=== PATIENT | female | born 1950 | race Caucasian/White ===

== ENCOUNTER 2016-11-25 12:45 | Emergency (ER) | payer MEDICARE, OTHER ==
[2016-11-25 13:28] VITALS: RESP 18; TEMP 97.9
[2016-11-25] MEDS ORDERED: diphenhydrAMINE 25 MG CAP PO STA (13:59)
[2016-11-25] MEDS ORDERED: predniSONE 50 MG TAB PO STA (13:59)
--- NOTE | 2016-11-25 14:01 | ED ---
General Adult HPI - General Chief complaint: Allergic Reaction Stated complaint: Allergic Reaction Time Seen by Provider: 11/25/16 13:31 Source: patient, RN notes reviewed, old records reviewed Mode of arrival: ambulatory Limitations: no limitations - History of Present Illness Initial comments: Patient is 66-year-old female who presents emergency room today with a chief complaint of a rash. She does admit that she follow-up the family doctor 3 days ago and was prescribed a antibiotics of quotes ampicillin" for a sinus infection. She states that she took this for 1 day woke up the next day with a rash generalized to her upper chest and arms. States she went back to the family doctor was given a shot of steroids. Patient states that symptoms are no better today. States not been using any Benadryl. Is not on steroids. He was given a prescription for doxycycline. She states she is worried because earlier this year she was admitted to the hospital for an infection. She denies any fevers. She denies any other complaints or associated symptoms. Patient denies any recent fever, chills, shortness of breath, chest pain, back pain, abdominal pain, nausea or vomiting, numbness or tingling, dysuria or hematuria, constipation or diarrhea, headaches or visual changes, or any other complaints. - Related Data Home Medications Medication Instructions Recorded Confirmed Allopurinol [Zyloprim] 300 mg PO DAILY 01/09/16 01/09/16 Dextroamphetamine/Amphetamine 15 mg PO BID 01/09/16 01/09/16 [Adderall] lamoTRIgine [LaMICtal] 100 mg PO DAILY 01/09/16 01/09/16 Previous Rx's Medication Instructions Recorded Acetaminophen Tab [Tylenol] 500 mg PO Q4HR PRN #0 tab 01/27/16 Diphenox-Atrop 2.5-0.025 mg 1 each PO Q6HR PRN #0 tab 01/27/16 [Lomotil] Docosanol 10% Cream [Abreva] 1 applic TOPICAL 5XD applic 01/27/16 Enoxaparin [Lovenox] 40 mg SQ DAILY syringe 01/27/16 Ertapenem [INVanz] 1 gm IVPB HS vial 01/27/16 Ipratropium-Albuterol Nebulize 3 ml INHALATION RT-QID ampul.neb 01/27/16 [Duoneb 0.5 mg-3 mg/3 ml Soln] LORazepam [Ativan] 1 mg PO Q8HR PRN #0 tab 01/27/16 Lactobacillus Acidoph & Bulgar 1 each PO TID packet 01/27/16 [Lactinex] Pantoprazole [Protonix] 40 mg PO AC-BRKFST tablet. 01/27/16 Scopolamine 1.5MG/72Hr Patch 1 patch TRANSDERM Q72H patch 01/27/16 [TransDerm Scop] Triamcinolone 0.1% Cream [Kenalog] 1 applic TOPICAL BID applic 01/27/16 diphenhydrAMINE [Benadryl] 1 - 2 tab PO Q6HR PRN #30 capsule 11/25/16 predniSONE 20 mg PO BID #10 tab 11/25/16 Allergies Allergy/AdvReac Type Severity Reaction Status Date / Time allopurinol Allergy Anaphylaxis Verified 11/25/16 13:29 ampicillin Allergy Rash/Hives Verified 11/25/16 13:29 avocado Allergy Nausea & Verified 11/25/16 13:29 Vomiting doxycycline Allergy Rash/Hives Verified 11/25/16 13:29 Sulfa (Sulfonamide Allergy Unknown Verified 11/25/16 13:29 Antibiotics) Review of Systems ROS Statement: Those systems with pertinent positive or pertinent negative responses have been documented in the HPI. ROS Other: All systems not noted in ROS Statement are negative. Past Medical History Past Medical History: Cancer, GERD/Reflux Additional Past Medical History / Comment(s): non hodgkins lymphoma, hiatal hernia,dx 2011 with non hodgkins lymphoma,tx,went into remission then had reoccurance few months ago-completed 30 tx(first round). recent thrush-since resolved but has non puritic diffuse rash over body. other past hx includes: mon in high school, hepatitis b,add,depression anxiety. History of Any Multi-Drug Resistant Organisms: None Reported Past Surgical History: Adenoidectomy, Tonsillectomy Additional Past Surgical History / Comment(s): rt cervical bx, multiple lymph nodes removed, colonoscopy, rt breast biopsy -neg Past Anesthesia/Blood Transfusion Reactions: No Reported Reaction Past Psychological History: ADD/ADHD, Anxiety, Depression Additional Psychological History / Comment(s): Single. Tobacco smoker till a few months ago. No significant alcohol use. No recreational drug use. No travel history. No experience. No animal exposures. Relates her parents both of cardiovascular disease. Smoking Status: Former smoker Past Alcohol Use History: None Reported Additional Past Alcohol Use History / Comment(s): started smoking at age 20 smoked 1 ppd, quit 1 month ago. Past Drug Use History: None Reported - Past Family History Mother Family Medical History: Coronary Artery Disease (CAD), Myocardial Infarction ([place] ) Additional Family Medical History / Comment(s): valve replacment(pig valve), pacemaker Father Family Medical History: Diabetes Mellitus, Myocardial Infarction ([place]) Additional Family Medical History / Comment(s): pacemaker General Exam - General Exam Comments Initial Comments: General: The patient is awake and alert, in no distress, and does not appear acutely ill. Eye: Pupils are equal, round and reactive to light, extra-ocular movements are intact. No nystagmus. There is normal conjunctiva bilaterally. No signs of icterus. Ears, nose, mouth and throat: There are moist mucous membranes and no oral lesions. Neck: The neck is supple, there is no tenderness or JVD. Cardiovascular: There is a regular rate and rhythm. No murmur, rub or gallop is appreciated. Respiratory: Lungs are clear to auscultation, respirations are non-labored, breath sounds are equal. No wheezes, stridor, rales, or rhonchi. Musculoskeletal: Normal ROM, no tenderness. Strength 5/5. Sensation intact. Pulses equal bilaterally 2+. Neurological: A&O x 3. CN II-XII intact, There are no obvious motor or sensory deficits. Coordination appears grossly intact. Speech is normal. Skin: Mild red erythematous rash to the upper extremities and anterior trunk. Psychiatric: Cooperative, appropriate mood & affect, normal judgment. Limitations: no limitations Course Vital Signs 11/25/16 13:19 Temperature 97.9 F Pulse Rate 70 Respiratory 18 Rate Blood Pressure 118/66 O2 Sat by Pulse 100 Oximetry Medical Decision Making - Medical Decision Making Patient's previous records were reviewed and does show that she was admitted and transferred to [facility] for a infectious colitis. She has no fever. No abdominal pain or diarrhea. Nausea and vomiting. Patient does have rash that she is being treated for due to ALLERGIC reaction. Has not been taking Benadryl or steroids. He was only given one dose. Patient will be given dose of steroids here in the emergency room along with Benadryl. Advised continue Benadryl one to 2 tabs every 6 hours. Will be given a prescription for steroids go home with advice to continue Benadryl if symptoms are not improving to use dose of steroids and follow-up the family doctor tomorrow. Advised to return to emergency room if any symptoms increase or worsen or for any other concerns. Disposition Clinical Impression: Allergic reaction Disposition: HOME SELF-CARE Condition: Good Instructions: General Allergic Reaction (ED) Additional Instructions: Please use Benadryl one to 2 tabs every 6 hours. Please use steroids as discussed and follow-up family doctor tomorrow. Please return to emergency room if any symptoms increase or worsen or for any other concerns. Prescriptions: diphenhydrAMINE [Benadryl] 1 - 2 tab PO Q6HR PRN #30 capsule PRN Reason: Allergic Reaction predniSONE 20 mg PO BID #10 tab Time of Disposition: 14:00
[2016-11-25 14:10] VITALS: BP 147/68; PULSE 65
== END 2016-11-25 14:28 | disposition home or self-care (01) ==
LOC: EC 12:45
DX: T78.40XA Allergy, unspecified, initial encounter (principal); R21 Rash and other nonspecific skin eruption; Z87.891 Personal history of nicotine dependence; K21.9 Gastro-esophageal reflux disease without esophagitis; C85.90 Non-Hodgkin lymphoma, unspecified, unspecified site; F90.9 Attention-deficit hyperactivity disorder, unspecified type; F32.9 Major depressive disorder, single episode, unspecified; F41.9 Anxiety disorder, unspecified; Z79.899 Other long term (current) drug therapy; Z88.0 Allergy status to penicillin; Z88.1 Allergy status to other antibiotic agents; Z88.2 Allergy status to sulfonamides; Z88.8 Allergy status to other drugs, medicaments and biological substances
CPT/HCPCS: 99283; J7512

== ENCOUNTER → 2017-01-15 | Outpatient (CLI) | payer MEDICARE, OTHER ==
--- NOTE | 2017-01-15 19:36 | CT ---
EXAMINATION TYPE: CT sinus wo con DATE OF EXAM: 01/15/2017 7:09 PM COMPARISON: NONE HISTORY: Sinus pain and pressure x 3 months. Pain to top of head. CT DLP: 660.00 mGycm Automated exposure control for dose reduction was used. FINDINGS: There is fairly normal development and aeration of the paranasal sinuses. There is atrophy of the rayray al turbinates. There is bilateral patency of the ostiomeatal complex. There is a 1 cm bony density in the right frontal sinus consistent with osteoma. Orbital margins are intact. Maxilla is intact. I se e no focal bone destruction. There is an 8 mm area of mucosal thickening on the left side of the sphe noid sinus. There is normal aeration of the mastoid air cells. IMPRESSION: NASAL TURBINATE ATROPHY OTHERWISE NEGATIVE CT SCAN OF THE PARANASAL SINUSES. MINIMAL SPHENOID MUCOSAL THICKENING. RIGHT FRONTAL SINUS OSTEOMA.
== END | disposition home or self-care (01) ==
LOC: RADCTMAIN 18:16
PROVIDERS: ATTEND Internal Medicine
DX: J34.89 Other specified disorders of nose and nasal sinuses (principal); D16.4 Benign neoplasm of bones of skull and face
CPT/HCPCS: 70486

== ENCOUNTER → 2017-02-20 | Outpatient (CLI) | payer MEDICARE, OTHER ==
[2017-02-20 11:05] LABS: ALT 41 U/L (9-52); AST 23 U/L (14-36); Alkaline Phosphatase 60 U/L (38-126); Anion Gap 8 mmol/L; Blood Urea Nitrogen 18 mg/dL (7-17); Calcium 9.7 mg/dL (8.4-10.2); Carbon Dioxide 29 mmol/L (22-30); Chloride 105 mmol/L (98-107); Cholesterol 281 mg/dL (<200); Glucose 81 mg/dL (74-99); HDL Cholesterol 91 mg/dL (40-60); LDH 385 U/L (313-618); Non-African American GFR(MDRD) >60 (>60 ml/min/1.73 sqM); Potassium 4.1 mmol/L (3.5-5.1); Sodium 142 mmol/L (137-145); Total Bilirubin 0.6 mg/dL (0.2-1.3); Total Protein 6.3 g/dL (6.3-8.2); Triglycerides 125 mg/dL (<150)
[2017-02-20 11:07] LABS: Basophils % (A) 0 %; CH 31.5; CHCM 32.9; Eosinophils # (A) 0.2 k/uL (0-0.7); Eosinophils % (A) 4 %; HCT 41.2 % (34.0-46.0); HDW 2.48; HGB 13.4 gm/dL (11.4-16.0); Luc # (Auto) 0.12; Luc % (Auto) 2; Lymphocytes # (A) 1.6 k/uL (1.0-4.8); Lymphocytes % (A) 28 %; MCH 31.4 pg (25.0-35.0); MCHC 32.6 g/dL (31.0-37.0); MCV 96.3 fL (80.0-100.0); Mean Platelet Volume 6.9; Monocytes # (A) 0.3 k/uL (0-1.0); Monocytes % (A) 5 %; Neutrophils # (A) 3.5 k/uL (1.3-7.7); Neutrophils % (A) 61 %; RBC 4.28 m/uL (3.80-5.40); RDW 13.1 % (11.5-15.5); WBC 5.8 k/uL (3.8-10.6); WBC (Perox) 6.21
[2017-02-20 14:24] LABS: Erythrocyte Sedimentation Rate 8 mm/hr (0-20)
== END ==
LOC: LABWHC1 09:59
PROVIDERS: ATTEND Internal Medicine
DX: E55.9 Vitamin D deficiency, unspecified (principal); Z13.6 Encounter for screening for cardiovascular disorders; C82.80 Other types of follicular lymphoma, unspecified site
CPT/HCPCS: 36415; 80053; 80061; 82306; 83615; 85025; 85652

== ENCOUNTER 2017-03-30 22:52 | Inpatient (IN) | payer MEDICARE, OTHER ==
[2017-03-31] MEDS ORDERED: MORPHINE SULFATE 4 MG/ML SYRINGE IV STA (00:18)
[2017-03-31] MEDS ORDERED: SODIUM CHLORIDE 0.9% 1,000 ML IV STA (00:18)
[2017-03-31] MEDS ORDERED: RX INFO: IV CONTRAST WAS GIVEN 1 EACH MISC MISCELLANE PRN (00:19)
--- NOTE | 2017-03-31 00:25 | ED ---
General Adult HPI - General Chief complaint: Shortness of Breath Stated complaint: Shoulder pain Source: patient, RN notes reviewed Mode of arrival: ambulatory Limitations: no limitations - History of Present Illness Initial comments: Patient is a pleasant 66-year-old female presenting to the emergency department complaining of right shoulder discomfort. Onset of symptoms was yesterday. Symptoms have significantly progressed since that time. Symptoms have even worsened over the past few hours. Patient states the discomfort is taking her breath away. No pain in the chest. Discomfort is by the right scapula and somewhat in the right trapezius and right shoulder region. Patient does have known liver disease and known gallstone. No history of similar problems previously. Symptoms are not positional. - Related Data Home Medications Medication Instructions Recorded Confirmed Amoxic-Pot Clav 875-125Mg 1 tab PO Q12H 11/25/16 11/25/16 [Augmentin 875-125] Doxycycline Hyclate 100 mg PO BID 11/25/16 11/25/16 Entecavir 0.5 mg PO DAILY 11/25/16 11/25/16 LORazepam [Ativan] 0.5 mg PO TID PRN 11/25/16 11/25/16 Allergies Allergy/AdvReac Type Severity Reaction Status Date / Time allopurinol Allergy Anaphylaxis Verified 03/31/17 00:34 ampicillin Allergy Rash/Hives Verified 03/31/17 00:34 avocado Allergy Nausea & Verified 03/31/17 00:34 Vomiting doxycycline Allergy Rash/Hives Verified 03/31/17 00:34 Sulfa (Sulfonamide Allergy Unknown Verified 03/31/17 00:34 Antibiotics) Review of Systems ROS Statement: Those systems with pertinent positive or pertinent negative responses have been documented in the HPI. ROS Other: All systems not noted in ROS Statement are negative. Constitutional: Denies: fever Eyes: Denies: eye pain ENT: Denies: ear pain Respiratory: Denies: cough Cardiovascular: Denies: chest pain Endocrine: Denies: fatigue Gastrointestinal: Reports: abdominal pain (Mild) Genitourinary: Denies: dysuria Musculoskeletal: Reports: back pain Skin: Denies: rash Neurological: Denies: weakness Past Medical History Past Medical History: Cancer, GERD/Reflux Additional Past Medical History / Comment(s): non hodgkins lymphoma, hiatal hernia,dx 2011 with non hodgkins lymphoma,tx,went into remission then had reoccurance few months ago-completed 30 tx(first round). recent thrush-since resolved but has non puritic diffuse rash over body. other past hx includes: mon in high school, hepatitis b,add,depression anxiety. History of Any Multi-Drug Resistant Organisms: None Reported Past Surgical History: Adenoidectomy, Tonsillectomy Additional Past Surgical History / Comment(s): rt cervical bx, multiple lymph nodes removed, colonoscopy, rt breast biopsy -neg Past Anesthesia/Blood Transfusion Reactions: No Reported Reaction Past Psychological History: ADD/ADHD, Anxiety, Depression Additional Psychological History / Comment(s): Single. Tobacco smoker till a few months ago. No significant alcohol use. No recreational drug use. No travel history. No experience. No animal exposures. Relates her parents both of cardiovascular disease. Smoking Status: Current every day smoker Past Alcohol Use History: None Reported Additional Past Alcohol Use History / Comment(s): started smoking at age 20 smoked 1 ppd, quit 1 month ago. Past Drug Use History: None Reported - Past Family History Mother Family Medical History: Coronary Artery Disease (CAD), Myocardial Infarction ([place] ) Additional Family Medical History / Comment(s): valve replacment(pig valve), pacemaker Father Family Medical History: Diabetes Mellitus, Myocardial Infarction ([place]) Additional Family Medical History / Comment(s): pacemaker General Exam Limitations: no limitations General appearance: alert, in no apparent distress Head exam: Present: atraumatic Eye exam: Present: normal appearance, PERRL ENT exam: Present: normal oropharynx Neck exam: Present: normal inspection Respiratory exam: Present: normal lung sounds bilaterally Cardiovascular Exam: Present: regular rate, normal rhythm Expanded Peripheral pulses: 2+: Radial (R), Radial (L), Dorsalis Pedis (R), Dorsalis Pedis (L) GI/Abdominal exam: Present: soft, tenderness (Mild right upper quadrant tenderness). Absent: distended Extremities exam: Present: normal inspection. Absent: pedal edema, calf tenderness Back exam: Present: normal inspection, full ROM, other (Patient states area discomfort is as described in the HPI however no significant tenderness on exam. ). Absent: tenderness Neurological exam: Present: alert. Absent: motor sensory deficit Psychiatric exam: Present: normal affect, normal mood Skin exam: Absent: rash Course Vital Signs 03/30/17 03/31/17 03/31/17 23:58 00:32 02:01 Temperature 98.1 F Pulse Rate 95 105 H 91 Respiratory 20 20 18 Rate Blood Pressure 157/75 125/73 112/58 O2 Sat by Pulse 99 98 99 Oximetry 03/31/17 03/31/17 03:01 03:30 Temperature Pulse Rate 99 91 Respiratory 18 18 Rate Blood Pressure 122/59 110/54 O2 Sat by Pulse 97 99 Oximetry EKG Findings - EKG Comments: EKG Findings:: Sinus rhythm at 91. NC 110. QRS 80. QT 314. QTC 36. Normal axis. Normal QRS. Normal ST-T. Medical Decision Making - Medical Decision Making Patient reevaluated and resting comfortably in bed. Patient updated on results and plan. Case was discussed with practitioner Luma who will admit for Dr. fitzgerald. Covering for Dr. Martin. Patient states she has seen Dr. Allen in the past and he will be consult - Lab Data Result diagrams: 03/31/17 00:35 03/31/17 00:35 Lab Results 03/31/17 03/31/17 03/31/17 Range/Units 00:35 00:35 00:35 WBC 6.9 (3.8-10.6) k/uL RBC 4.28 (3.80-5.40) m/uL Hgb 13.7 (11.4-16.0) gm/dL Hct 40.9 (34.0-46.0) % MCV 95.6 (80.0-100.0) fL MCH 32.0 (25.0-35.0) pg MCHC 33.5 (31.0-37.0) g/dL RDW 13.3 (11.5-15.5) % Plt Count 153 (150-450) k/uL Neutrophils % 89 % Lymphocytes % 4 % Monocytes % 4 % Eosinophils % 3 % Basophils % 0 % Neutrophils # 6.2 (1.3-7.7) k/uL Lymphocytes # 0.2 L (1.0-4.8) k/uL Monocytes # 0.3 (0-1.0) k/uL Eosinophils # 0.2 (0-0.7) k/uL Basophils # 0.0 (0-0.2) k/uL PT (9.0-12.0) sec INR (<1.1) APTT (22.0-30.0) sec Sodium 142 (137-145) mmol/L Potassium 4.2 (3.5-5.1) mmol/L Chloride 106 (98-107) mmol/L Carbon Dioxide 26 (22-30) mmol/L Anion Gap 10 mmol/L BUN 27 H (7-17) mg/dL Creatinine 1.10 H (0.52-1.04) mg/dL Est GFR (MDRD) Af Amer >60 (>60 ml/min/1.73 sqM) Est GFR (MDRD) Non-Af 50 (>60 ml/min/1.73 sqM) Glucose 105 H (74-99) mg/dL Calcium 9.4 (8.4-10.2) mg/dL Magnesium 1.9 (1.6-2.3) mg/dL Total Bilirubin 0.5 (0.2-1.3) mg/dL AST 51 H (14-36) U/L ALT 42 (9-52) U/L Alkaline Phosphatase 72 (38-126) U/L Total Creatine Kinase 39 (30-135) U/L CK-MB (CK-2) 0.8 (0.0-2.4) ng/mL CK-MB (CK-2) Rel Index 2.1 Troponin I <0.012 (0.000-0.034) ng/mL Total Protein 6.0 L (6.3-8.2) g/dL Albumin 3.9 (3.5-5.0) g/dL Amylase 86 (30-110) U/L Lipase 419 H (23-300) U/L 03/31/17 Range/Units 00:35 WBC (3.8-10.6) k/uL RBC (3.80-5.40) m/uL Hgb (11.4-16.0) gm/dL Hct (34.0-46.0) % MCV (80.0-100.0) fL MCH (25.0-35.0) pg MCHC (31.0-37.0) g/dL RDW (11.5-15.5) % Plt Count (150-450) k/uL Neutrophils % % Lymphocytes % % Monocytes % % Eosinophils % % Basophils % % Neutrophils # (1.3-7.7) k/uL Lymphocytes # (1.0-4.8) k/uL Monocytes # (0-1.0) k/uL Eosinophils # (0-0.7) k/uL Basophils # (0-0.2) k/uL PT 9.9 (9.0-12.0) sec INR 1.0 (<1.1) APTT 22.2 (22.0-30.0) sec Sodium (137-145) mmol/L Potassium (3.5-5.1) mmol/L Chloride (98-107) mmol/L Carbon Dioxide (22-30) mmol/L Anion Gap mmol/L BUN (7-17) mg/dL Creatinine (0.52-1.04) mg/dL Est GFR (MDRD) Af Amer (>60 ml/min/1.73 sqM) Est GFR (MDRD) Non-Af (>60 ml/min/1.73 sqM) Glucose (74-99) mg/dL Calcium (8.4-10.2) mg/dL Magnesium (1.6-2.3) mg/dL Total Bilirubin (0.2-1.3) mg/dL AST (14-36) U/L ALT (9-52) U/L Alkaline Phosphatase (38-126) U/L Total Creatine Kinase (30-135) U/L CK-MB (CK-2) (0.0-2.4) ng/mL CK-MB (CK-2) Rel Index Troponin I (0.000-0.034) ng/mL Total Protein (6.3-8.2) g/dL Albumin (3.5-5.0) g/dL Amylase (30-110) U/L Lipase (23-300) U/L - Radiology Data Radiology results: report reviewed (Computed tomography scan of the chest shows no acute process. Ultrasound shows cholelithiasis with nonspecific wall thickening and gallbladder distention. Common bile duct dilation.) Disposition Clinical Impression: Cholelithiasis Disposition: ADMITTED IP TO THIS HOSP
[2017-03-31 00:54] LABS: Basophils % (A) 0 %; CH 32.8; CHCM 34.4; Eosinophils # (A) 0.2 k/uL (0-0.7); Eosinophils % (A) 3 %; HCT 40.9 % (34.0-46.0); HDW 2.59; HGB 13.7 gm/dL (11.4-16.0); Luc # (Auto) 0.03; Luc % (Auto) 0; Lymphocytes # (A) 0.2 k/uL (1.0-4.8); Lymphocytes % (A) 4 %; MCHC 33.5 g/dL (31.0-37.0); MCV 95.6 fL (80.0-100.0); Monocytes # (A) 0.3 k/uL (0-1.0); Monocytes % (A) 4 %; Neutrophils # (A) 6.2 k/uL (1.3-7.7); Neutrophils % (A) 89 %; Partial Thromboplastin Time 22.2 sec (22.0-30.0); Prothrombin Time 9.9 sec (9.0-12.0); RBC 4.28 m/uL (3.80-5.40); RDW 13.3 % (11.5-15.5); WBC 6.9 k/uL (3.8-10.6); WBC (Perox) 6.42
[2017-03-31 00:55] LABS: ALT 42 U/L (9-52); AST 51 U/L (14-36); Alkaline Phosphatase 72 U/L (38-126); Amylase 86 U/L (30-110); Anion Gap 10 mmol/L; Blood Urea Nitrogen 27 mg/dL (7-17); Calcium 9.4 mg/dL (8.4-10.2); Carbon Dioxide 26 mmol/L (22-30); Chloride 106 mmol/L (98-107); Glucose 105 mg/dL (74-99); Magnesium 1.9 mg/dL (1.6-2.3); Non-African American GFR(MDRD) 50 (>60 ml/min/1.73 sqM); Potassium 4.2 mmol/L (3.5-5.1); Sodium 142 mmol/L (137-145); Total Bilirubin 0.5 mg/dL (0.2-1.3)
[2017-03-31 01:04] LABS: Creatine Kinase 39 U/L (30-135)
[2017-03-31 01:17] LABS: Creatine Kinase MB 0.8 ng/mL (0.0-2.4); Troponin I <0.012 ng/mL (0.000-0.034)
--- NOTE | 2017-03-31 02:14 | US ---
EXAM: US GALLBLADDER INDICATION: 66-year-old female with right upper quadrant abdominal pain. TECHNIQUE: Real-time imaging of the right upper quadrant is performed in transverse and longitudinal projections. COMPARISON: CT abdomen and pelvis 01/21/2016. FINDINGS: The gallbladder is distended and contains non-shadowing mobile echogenic foci near its dependent portion. There is mild gallbladder wall thickening measuring up to 0.3 cm, which is nonspecific. No pericholecystic fluid. Motor Operator reports a negative Pena's sign. Common bile duct is dilated measuring 0.8 cm. The liver is normal in size and echotexture. No focal mass lesions are seen. The visualized portions of the pancreas are unremarkable. IMPRESSION: Cholelithiasis with nonspecific gallbladder wall thickening, gallbladder distention, and common bile duct dilation. Consider further evaluation with HIDA scan and correlation for cholestasis.
[2017-03-31] MEDS ORDERED: MORPHINE SULFATE 4 MG/ML SYRINGE IVP STA (03:21)
--- NOTE | 2017-03-31 03:38 | CT ---
EXAM: CTA CHEST DOSE: CTDI is 35.2 mGy and DLP is 147.70 mGy-cm DOSE REDUCTION: This CT exam was performed using one or more of the following dose reduction techniques: automated exposure control, adjustment of the mA and/or kV according to patient size, and/or use of iterative reconstruction technique. INDICATION: 66-year-old female with chest and back pain; history of lymphoma. TECHNIQUE: Multiple, contiguous axial cuts of the chest are obtained following the administration of IV contrast. High resolution axial image as well as, sagittal and coronal reformatted images are available. COMPARISON: CT chest 11/24/2015. FINDINGS: Heart, vasculature, and mediastinum: No large or central pulmonary embolus is identified with markedly limited evaluation secondary to suboptimal contrast bolus within the pulmonary arteries. The aorta is within normal limits, no aneurysm or dissection. Mild atherosclerosis of the thoracic aorta and branches. The cardiomediastinal structures are otherwise unremarkable. No adenopathy. Thyroid is normal as visualized. Lungs, pleura, and airways: No pleural effusion, pneumothorax, or focal consolidation. Stable left upper lobe nodule with adjacent scarring or fibrosis measuring 0.8 cm. Subpleural fibrosis and emphysema has mildly progressed since comparison examination. Airways are clear. No significant bronchiectasis. Musculoskeletal: The osseous structures are intact. Degenerative changes spine. No aggressive osseous lesion or evidence of compression fracture. Upper abdomen: Solid organs are unremarkable as visualized. Upper abdominal adenopathy has markedly improved/resolved since comparison. IMPRESSION: 1. No evidence of acute chest process. 2. Left upper lobe nodule with adjacent scarring and fibrosis is unchanged. Continued follow-up is recommended to ensure stability. 3. 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 4. Upper abdominal adenopathy is markedly improved/resolved since comparison.
[2017-03-31] MEDS ORDERED: NALOXONE 0.4 MG/ML 1 ML VIAL IV PRN (03:48)
[2017-03-31] MEDS ORDERED: ONDANSETRON 4 MG/2 ML VIAL IVP PRN (04:58)
[2017-03-31] MEDS ORDERED: LORazepam 2 MG/ML SYRINGE IM PRN (04:58)
[2017-03-31 05:14] VITALS: BMI 21.9
[2017-03-31] MEDS: SODIUM CHLORIDE 0.9% 1,000 ML IV SCH ×3 (05:16→17:55)
[2017-03-31] MEDS: LORazepam 2 MG/ML SYRINGE IV PRN ×2 (05:50→14:47)
[2017-03-31] MEDS: PANTOPRAZOLE 40 MG/10 ML VIAL IV SCH (08:31)
[2017-03-31] MEDS: MORPHINE SULFATE 4 MG/ML SYRINGE IV PRN ×3 (11:14→20:00)
--- NOTE | 2017-03-31 11:19 | P.GSCN ---
History of Present Illness Consult date: 03/31/17 Reason for Consult: Cholelithiasis Requesting physician: Figueroa Quiros History of present illness: Thank you very much for asking us to see Ms. Cho. She is a 66-year-old white female was admitted through the emergency room last night with severe pain mostly in the right shoulder blade neck area progressively worsened over the last 2 days. Some nausea and an episode of vomiting. Some mild epigastric right upper quadrant discomfort as well. Pain also between the shoulder blades. She's had similar pains off and on in the past but not as severe. She had the an ultrasound revealed evidence of gallstones. Gallbladder wall was not particularly thickened around the gallbladder.Common bile duct was 8mm in diameter slightly dilated. LFT show everywhere normal except for a AST of 51. Node finite the fever or chills. She does have a history of non-Hodgkin's lymphoma and apparently indolent.She did have the chemotherapy last year and subsequently developed a reaction.She is now being observed. Recent workup was unremarkable. Past history as above. Also has a history of hiatal hernia hepatitis B depression and anxiety. Tonsillectomy and adenoidectomy cervical lymph node biopsy colonoscopy and right breast biopsy in the past. Social history. He smoked about the 1 pack of cigarettes per day for sensation 20. Quit about a month ago. Rarely drinks alcohol. She is single. Family history noncontributory. Positive for coronary artery disease diabetes mellitus. Systems review as above. No definite the cough hemoptysis chest pain or significant shortness of breath. No major change in her bowel habits. No urinary symptoms. No LOGGING [employer] problems. Examination. Patient is awake alert in no acute distress at this time. She is then with a BMI of 22. Anicteric. Hydration satisfactory. Color is good. Vitals are normal. Head and neck otherwise normal. Heart lungs are clear. Abdomen is soft. Very minimal epigastric right upper quadrant tenderness. No guarding or rebound. No mass or organomegaly. No hernias. LO[employer] grossly intact. Laboratory studies reviewed. WBC was 6900. Hemoglobin 13.7. LFTs were normal with AST 40 mildly elevated to 51. Bilirubin is 0.5. Ultrasound as above. CTA was unremarkable for PE. Impression cholelithiasis with probably be a biliary colic causing above symptoms. Doubt the common duct obstruction view of unremarkable LFTs. History of the non-Hodgkin's lymphoma stable. She of tobacco abuse. History of anxiety depression. Recommendation agree with current management with IV fluids antibiotics dietary restriction. Recommend laparoscopic cholecystectomy possible open and we will tentatively schedule for tomorrow depending on Dr. Avery's schedule. Past Medical History Past Medical History: Cancer, GERD/Reflux Additional Past Medical History / Comment(s): non hodgkins lymphoma, hiatal hernia,dx 2012 with non hodgkins lymphoma,tx,went into remission then had reoccurance few months ago-completed 30 tx(first round). recent thrush-since resolved but has non puritic diffuse rash over body. other past hx includes: mono in high school, hepatitis B History of Any Multi-Drug Resistant Organisms: None Reported Past Surgical History: Adenoidectomy, Tonsillectomy Additional Past Surgical History / Comment(s): rt cervical bx, multiple lymph nodes removed, colonoscopy, rt breast biopsy -neg Past Anesthesia/Blood Transfusion Reactions: No Reported Reaction Past Psychological History: Anxiety, Depression Additional Psychological History / Comment(s): Single. Tobacco smoker till a few months ago. No significant alcohol use. No recreational drug use. No travel history. No experience. No animal exposures. Relates her parents both of cardiovascular disease. Smoking Status: Current every day smoker Past Alcohol Use History: None Reported Additional Past Alcohol Use History / Comment(s): smokes 5 cigarettes per day Past Drug Use History: None Reported - Past Family History Mother Family Medical History: Coronary Artery Disease (CAD), Myocardial Infarction ([place] ) Additional Family Medical History / Comment(s): valve replacment(pig valve), pacemaker Father Family Medical History: Diabetes Mellitus, Myocardial Infarction ([place]) Additional Family Medical History / Comment(s): pacemaker Medications and Allergies Home Medications Medication Instructions Recorded Confirmed Type Entecavir 0.5 mg PO DAILY 11/25/16 03/31/17 History LORazepam [Ativan] 0.5 mg PO TID PRN 11/25/16 03/31/17 History buPROPion XL [Wellbutrin Xl] 150 mg PO DAILY 03/31/17 03/31/17 History Allergies Allergy/AdvReac Type Severity Reaction Status Date / Time allopurinol Allergy Anaphylaxis Verified 03/31/17 08:23 ampicillin Allergy Rash/Hives Verified 03/31/17 08:23 avocado Allergy Nausea & Verified 03/31/17 08:23 Vomiting doxycycline Allergy Rash/Hives Verified 03/31/17 08:23 metronidazole [From Flagyl] Allergy Rash/Hives Verified 04/01/17 09:09 rituximab [From Rituxan] Allergy Diarrhea Verified 03/31/17 08:23 Sulfa (Sulfonamide Allergy Unknown Verified 03/31/17 08:23 Antibiotics) Surgical - Exam Vital Signs Temp Pulse Resp BP Pulse Ox 98.1 F 95 20 157/75 99 03/30/17 23:58 03/30/17 23:58 03/30/17 23:58 03/30/17 23:58 03/30/17 23:58 Results - Labs 04/02/17 07:30 04/02/17 07:30
[2017-03-31] MEDS ORDERED: LEVOFLOXACIN 500MG-D5W PMX 500 MG in DEXTROSE/WATER 1 100ML.BAG IVPB SCH (12:00)
[2017-03-31] MEDS ORDERED: SODIUM CHLORIDE 0.9% 500 ML IV ONE (17:35)
[2017-03-31] MEDS: ENOXAPARIN 40 MG/0.4 ML SYRINGE SQ SCH (18:13)
[2017-03-31] MEDS: metroNIDAZOLE-NS PMX 500 MG in SALINE 1 100ML.BAG IVPB SCH ×2 (18:13→23:59)
--- NOTE | 2017-03-31 19:33 | XR ---
EXAMINATION TYPE: XR cervical spine w flex/ext DATE OF EXAM: 03/31/2017 7:02 PM COMPARISON: NONE HISTORY: Chronic neck pain TECHNIQUE: 7 views FINDINGS: The vertebra are normal alignment. There is degenerative disc space narrowing at C6-7 with spurring of the endplates. Flexion and extension views show no sign of instability. Posterior element s are intact. Neural foramina are fairly well maintained. Atlantoaxial facet joint is normal. IMPRESSION: Spondylosis at C6-7. No fracture. No evidence of instability.
--- NOTE | 2017-03-31 19:34 | XR ---
EXAMINATION TYPE: XR shoulder complete RT DATE OF EXAM: 03/31/2017 7:02 PM COMPARISON: NONE HISTORY: Shoulder pain TECHNIQUE: 3 views FINDINGS: I see no fracture nor dislocation. Glenohumeral joint is intact. There are no pathologic ca lcifications. IMPRESSION: Negative right shoulder exam.
--- NOTE | 2017-03-31 19:35 | XR ---
EXAMINATION TYPE: XR thoracic spine 2V DATE OF EXAM: 03/31/2017 7:02 PM COMPARISON: NONE HISTORY: Back pain TECHNIQUE: 3 views FINDINGS: Thoracic vertebra have normal alignment. There is no compression fracture. There is no para spinal mass. Posterior elements appear intact. IMPRESSION: Negative thoracic spine exam. There is clearing of pleural effusions compared to old ches t x-ray of 01/24/2016.
--- NOTE | 2017-03-31 19:36 | XR ---
EXAMINATION TYPE: XR knee complete RT DATE OF EXAM: 03/31/2017 7:02 PM COMPARISON: NONE HISTORY: Knee pain TECHNIQUE: 3 views FINDINGS: There is mild spurring of the medial femoral and tibial condyles. I see no fracture nor dis location. There is mild spurring on the superior patella. There is no definite joint effusion. IMPRESSION: Mild osteoarthritic changes. No fracture seen.
[2017-03-31] MEDS ORDERED: HEPARIN SODIUM,PORCINE 5,000 UNIT/ML 1 ML VIAL SQ SCH (21:00)
--- NOTE | 2017-03-31 21:58 | CONS ---
DATE OF CONSULTATION: 03/31/2017 REASON FOR CONSULTATION: Dilated common bile duct and gallstones. HISTORY OF PRESENT ILLNESS: The patient is a 66-year-old white female admitted to the hospital last night when she presented with severe pain in the right shoulder progressively getting worse for the last 2 days' duration. She had some nausea and vomiting yesterday. She also had some epigastric and mild right upper quadrant abdominal pain yesterday too but her main symptom is pain in the right shoulder area. She came into the ER, she had an ultrasound of the gallbladder done, was noted to have gallstones and dilated duct at 8 mm and hence, we are consulted in regards to this issue. She did have labs and liver enzymes are within normal limits. The patient was diagnosed with Hodgkin's lymphoma about 2 years ago and underwent chemotherapy during which time she developed severe acute hepatitis requiring prolonged hospitalization but that since has resolved. PAST MEDICAL HISTORY: History of lymphoma diagnosed 2 years ago and history of hypertension, anxiety, depression. History of chronic hepatitis B infection and follows at [facility]. Medications at home include: 1. Wellbutrin. 2. Ativan. 3. ( ). ALLERGIES: ALLOPURINOL, AMPICILLIN, DOXYCYCLINE, RITUXAN AND SULFA. SOCIAL HISTORY: No smoking. No alcohol use. FAMILY HISTORY: Unremarkable. REVIEW OF SYSTEMS: CARDIOPULMONARY: She denies any chest pain or shortness of breath. GENITOURINARY: No dysuria or hematuria. MUSCULOSKELETAL: Unremarkable. SKIN: Unremarkable. ENDOCRINE: Unremarkable. PSYCHIATRIC: Unremarkable. NEUROLOGY: Unremarkable. ENT/vision: Unremarkable. CONSTITUTIONAL: No recent weight loss. No fevers, chills or night sweats. On physical examination, she appears comfortable in no apparent distress. Vitals signs are stable. Blood pressure is 100/54, pulse rate 98. Respirations 16. HEENT examination unremarkable. Conjunctivae pink. Sclerae anicteric. Oral cavity, no lesions. NECK: No JVD or lymph node enlargement. Chest was clear to auscultation. HEART: Regular rate and rhythm. ABDOMEN: There was minimal tenderness in the epigastric and right upper quadrant area. No organomegaly. EXTREMITIES: No pedal edema. SKIN: No rashes. NEURO: Alert and oriented x3. No focal deficits. LABS: WBC 6.9, hemoglobin 13.7, platelets are normal. Basic metabolic panel is within normal limits. BUN 27, creatinine 1.10, AST 51, ALT 42. T-bili 0.5. Alkaline phosphatase is 72. Ultrasound of the abdomen did show evidence of gallstones and dilated common bile duct at 8 mm. IMPRESSION: 1. This lady presents with right shoulder pain as well as mild epigastric and right upper quadrant abdominal pain with nausea and vomiting yesterday and symptoms going on for the last 2 days' duration. Ultrasound did show evidence of gallstones and slightly dilated common bile duct at 8 mm, but normal serum transaminases. 2. History of chronic hepatitis B infection for which she is ( ) and follows at [facility] closely. 3. History of Hodgkin's lymphoma diagnosed 2 years ago in clinical remission. RECOMMENDATIONS: 1. No indication for an ERCP the present time, since her serum transaminases are within normal limits. 2. Will repeat labs in the morning and will follow her closely during her hospital stay. Thank you for this consultation.
[2017-04-01 08:10] LABS: CH 32.3; CHCM 33.3; HCT 36.9 % (34.0-46.0); HDW 2.62; HGB 12.2 gm/dL (11.4-16.0); MCH 32.1 pg (25.0-35.0); MCHC 32.9 g/dL (31.0-37.0); MCV 97.6 fL (80.0-100.0); Mean Platelet Volume 7.2; RBC 3.79 m/uL (3.80-5.40); RDW 13.3 % (11.5-15.5); WBC 5.8 k/uL (3.8-10.6); WBC (Perox) 5.95
[2017-04-01 08:37] LABS: Anion Gap 6 mmol/L; Blood Urea Nitrogen 17 mg/dL (7-17); Calcium 8.5 mg/dL (8.4-10.2); Carbon Dioxide 24 mmol/L (22-30); Chloride 110 mmol/L (98-107); Glucose 74 mg/dL (74-99); Non-African American GFR(MDRD) >60 (>60 ml/min/1.73 sqM); Potassium 4.3 mmol/L (3.5-5.1); Sodium 140 mmol/L (137-145)
[2017-04-01] MEDS ORDERED: diphenhydrAMINE 50 MG/ML 1 ML VIAL IVP STA (08:39)
[2017-04-01] MEDS: ENOXAPARIN 40 MG/0.4 ML SYRINGE SQ SCH (08:59)
[2017-04-01] MEDS: PANTOPRAZOLE 40 MG/10 ML VIAL IV SCH (08:59)
[2017-04-01] MEDS: MORPHINE SULFATE 4 MG/ML SYRINGE IV PRN ×3 (09:07→19:45)
[2017-04-01 09:09] LABS: Add Differential Manual Differential
[2017-04-01 09:11] LABS: Nucleated Red Blood Cells 0 /100 WBC (0-0)
[2017-04-01 09:13] LABS: Manual Review Performed; Total Cells Counted 200
[2017-04-01 09:14] LABS: RBC Morphology Normal
[2017-04-01] MEDS: metroNIDAZOLE-NS PMX 500 MG in SALINE 1 100ML.BAG IVPB SCH (09:34)
[2017-04-01] MEDS: SODIUM CHLORIDE 0.9% 1,000 ML IV SCH ×2 (09:34→12:54)
--- NOTE | 2017-04-01 09:34 | P.CNOR ---
History of Present Illness - [facility] Consult date: 04/01/17 Consult reason: neck pain (Right shoulder and bilateral knee pain) History of present illness: This is a 66-year-old female who is admitted through the emergency department for right shoulder and neck pain. The patient states that she has ongoing neck and right shoulder pain which became significantly worse over the weekend. She was found to have cholelithiasis and is scheduled for a laparoscopic cholecystectomy today. Orthopedics was consulted for evaluation of her neck and shoulder pain as well as bilateral knee pain. Past Medical History Past Medical History: Cancer, GERD/Reflux Additional Past Medical History / Comment(s): non hodgkins lymphoma, hiatal hernia,dx 2011 with non hodgkins lymphoma,tx,went into remission then had reoccurance few months ago-completed 30 tx(first round). recent thrush-since resolved but has non puritic diffuse rash over body. other past hx includes: mono in high school, hepatitis B History of Any Multi-Drug Resistant Organisms: None Reported Past Surgical History: Adenoidectomy, Tonsillectomy Additional Past Surgical History / Comment(s): rt cervical bx, multiple lymph nodes removed, colonoscopy, rt breast biopsy -neg Past Anesthesia/Blood Transfusion Reactions: No Reported Reaction Past Psychological History: Anxiety, Depression Additional Psychological History / Comment(s): Single. Tobacco smoker till a few months ago. No significant alcohol use. No recreational drug use. No travel history. No experience. No animal exposures. Relates her parents both of cardiovascular disease. Smoking Status: Current every day smoker Past Alcohol Use History: None Reported Additional Past Alcohol Use History / Comment(s): smokes 5 cigarettes per day Past Drug Use History: None Reported - Past Family History Mother Family Medical History: Coronary Artery Disease (CAD), Myocardial Infarction ([place] ) Additional Family Medical History / Comment(s): valve replacment(pig valve), pacemaker Father Family Medical History: Diabetes Mellitus, Myocardial Infarction ([place]) Additional Family Medical History / Comment(s): pacemaker Medications and Allergies Home Medications Medication Instructions Recorded Confirmed Type Entecavir 0.5 mg PO DAILY 11/25/16 03/31/17 History LORazepam [Ativan] 0.5 mg PO TID PRN 11/25/16 03/31/17 History buPROPion XL [Wellbutrin Xl] 150 mg PO DAILY 03/31/17 03/31/17 History Allergies Allergy/AdvReac Type Severity Reaction Status Date / Time allopurinol Allergy Anaphylaxis Verified 03/31/17 08:23 ampicillin Allergy Rash/Hives Verified 03/31/17 08:23 avocado Allergy Nausea & Verified 03/31/17 08:23 Vomiting doxycycline Allergy Rash/Hives Verified 03/31/17 08:23 metronidazole [From Flagyl] Allergy Rash/Hives Verified 04/01/17 09:09 rituximab [From Rituxan] Allergy Diarrhea Verified 03/31/17 08:23 Sulfa (Sulfonamide Allergy Unknown Verified 03/31/17 08:23 Antibiotics) Physical Examination This is a pleasant 66-year-old female in no acute distress. She is alert and oriented 3. Exam of the head neck reveals mild limitation in cervical rotation secondary to pain. There is tenderness to palpation about the cervical paraspinal musculature, particularly on the right. There is tenderness to palpation about the right trapezius. Exam of the upper extremities reveals no pain with palpation about the shoulder. She has full forward flexion and abduction without pain or difficulty. There is slight weakness noted with finger extension and thumb extension on the right. Jointer Machine strength is equal. Exam of bilateral lower extremities reveals mild medial joint line tenderness on the right. There is no patellar apprehension noted. Jimbo's is negative bilaterally. She has full foot and ankle motion bilaterally without difficulty or pain. Neurovascular status to the lower extremities is intact. Results X-rays of the cervical spine show mild degenerative changes. There is a slight anterolisthesis at C4-5. There is diminished disc space at C6-7. There is mild foraminal stenosis noted throughout cervical spine. X-rays of the right shoulder show no bony malate. There are minimal degenerative changes noted. Limited x-ray of the right knee shows mild degenerative arthritis. There is no lateral or sunrise view. - Labs Labs: Abnormal Lab Results - Last 24 Hours (Table) 04/01/17 04/01/17 Range/Units 07:40 07:40 RBC 3.79 L (3.80-5.40) m/uL Plt Count 128 L (150-450) k/uL Lymphocytes # (Manual) 0.5 L (1.0-4.8) k/uL Eosinophils # (Manual) 2.3 H (0-0.7) k/uL Chloride 110 H (98-107) mmol/L H & H 04/01/17 Range/Units 07:40 Hgb 12.2 (11.4-16.0) gm/dL Hct 36.9 (34.0-46.0) % Result Diagrams: 04/01/17 07:40 04/01/17 07:40 Assessment and Plan (1) Degenerative arthritis of cervical spine Status: Acute (2) Cholelithiasis Status: Acute (3) Degenerative arthritis of right knee Status: Acute Plan: The clinical and x-ray findings are discussed the patient. It is discussed that she most likely is having referred gallbladder pain as well as cervical radiculopathy. It is recommended that she have her cholecystectomy today, then we can focus on her orthopedic issues. I've written for moist heat to the cervical spine and shoulders. We will begin physical therapy for the neck and knees once she is cleared by general surgery. She is also offered a cortisone injection to the right knee once cleared by surgery. We will follow her on an outpatient basis once discharged.
--- NOTE | 2017-04-01 10:12 | HP ---
DATE OF ADMISSION: 03/31/17 PRESENTING COMPLAINT: Abdominal pain, nausea, vomiting. HISTORY OF PRESENTING COMPLAINT: This is a very pleasant 66 year old patient of Dr. Ad Pizarro, chronic stable conditions include a non-Hodgkin lymphoma for which patient was getting ALLOPURINOL, had an allergic reaction that was stopped and subsequent medication was started because of former, having allergic reaction. Also getting treated for anxiety, depression, and hypercholesterolemia. About 2 weeks ago the patient was diagnosed with gallstones, because of ( ) treatment had affected the patient's liver, at that point, Dr. Alberto decided just to leave things alone. The patient now presents with episode of shoulder pain going to the neck, some neck stiffness and pain in the right arm. The patient has had neck problems before. The patient also had some nausea, vomiting, two episodes. Given the gallbladder and possible infection, the patient admitted. The patient also had some fever while she was in the hospital and started on antibiotics for the same. Patient is feeling tired and rundown. REVIEW OF SYSTEMS: CONSTITUTIONAL: Tired febrile. HEENT: None. RESPIRATORY: None. CARDIOVASCULAR: None. GASTROINTESTINAL: Some right upper quadrant pain previously. GENITOURINARY: None. MUSCULOSKELETAL: Pain in the right shoulder, neck and right knee. DERMATOLOGICAL: None. HEMATOLOGICAL: As above. LYMPHATICS: None. PSYCHIATRY: None. NEUROLOGICAL: None. PAST HISTORY: Past medical history of non-Hodgkin's lymphoma, hiatal hernia, anxiety, depression, and hypercholesterolemia. PAST SURGICAL HISTORY: Adenoidectomy, tonsillectomy, right breast biopsy. SOCIAL HISTORY: Patient smoked until a few months ago. Patient was smoking more heavily, now down to 5 cigarettes a day. FAMILY HISTORY: Coronary artery disease. HOME MEDICATIONS: Wellbutrin XL 150 mg p.o. daily. Ativan 0.5 p.o. t.i.d. p.r.n., Entecavir 0.5 mg p.o. daily. ALLERGIES: ALLOPURINOL, AMPICILLIN, AVOCADO, DOXYCYCLINE, CYTOXAN, SULFUR. PHYSICAL EXAMINATION: On examination, temperature 101.3, pulse 105, respirations 17, blood pressure 107/72, pulse ox 95%. GENERAL APPEARANCE: Well built, sitting up, not in distress EYES: Conjunctivae normal. HEENT: Oral Cavity normal. NECK: JVD not raised. Mass not palpable. RESPIRATORY: Effort normal. LUNGS: Slightly decreased breath sounds. CARDIOVASCULAR: First and second sounds normal. No edema. ABDOMEN: Soft, nontender. Liver and spleen not palpable. LYMPHATIC: No lymph node palpable in neck or axillae. PSYCHIATRY: Alert and oriented x3. Mood and affect normal. NEUROLOGICAL: Pupils equal. Cranial nerves grossly intact. Power and sensation intact. MUSCULOSKELETAL: Patient has some tenderness over the right shoulder and also when the patient tries to slide up over the spine, range is limited. Additionally, the patient may have some right upper quadrant tenderness. INVESTIGATIONS: White count 6.9, hemoglobin 13.7, potassium 4.2, BUN ( ), creatinine 1.10. Lipase is 419, amylase is 86. Ultrasound gallbladder shows gallstones with gallbladder wall thickening, left upper nodule ( ) guarding and fibrosis. Emphysema. ASSESSMENT: 1. Gallstones with acute cholecystitis with sepsis-like picture present on admission. 2. Possible cervical spine degenerative joint disease with radiculopathy going down the right shoulder and the right arm. 3. Ruled out rule shoulder pathology. 4. Non-Hodgkin's lymphoma. 5. Anxiety depression, not otherwise specified. 6. Hypercholesterolemia 7. Emphysema in a current smoker. PLAN: Patient will be started on IV Levaquin and Flagyl. Home medications are resumed. General surgery was consulted, Sekoux for DVT prophylaxis. Will also consult hematology for his non-Hodgkin's lymphoma. Will also consult orthopedics in view of the right shoulder, knee and cervical spine pain. Case was discussed in detail with the patient.
[2017-04-01 11:05] LABS: ALT 61 U/L (9-52); AST 41 U/L (14-36); Alkaline Phosphatase 62 U/L (38-126); Total Bilirubin 0.5 mg/dL (0.2-1.3); Total Protein 4.8 g/dL (6.3-8.2)
[2017-04-01] MEDS: LEVOFLOXACIN 250MG-D5W PMX 250 MG in DEXTROSE/WATER 1 50ML.BAG IVPB SCH (12:52)
[2017-04-01] MEDS: LORazepam 2 MG/ML SYRINGE IV PRN ×2 (15:17→22:09)
[2017-04-01] MEDS ORDERED: IV FLUID CONTINUATION 1,000 ML IV ONE (15:49)
[2017-04-01] MEDS ORDERED: DEXAMETHASONE SOD PHOSPHATE 10 MG/ML 1 ML VIAL IV ONE (16:00)
[2017-04-01] MEDS ORDERED: ONDANSETRON 4 MG/2 ML VIAL IVP ONE (16:01)
[2017-04-01] MEDS ORDERED: PHENYLEPHRINE-0.9% NACL SYG 1 MG/10 ML SYRINGE ONE (16:32)
[2017-04-01] MEDS ORDERED: LIDOCAINE 1% INJ 10MG/ML (20 ML MDV) ONE (16:32)
[2017-04-01] MEDS ORDERED: fentaNYL (PF) 50 MCG/ML 2 ML AMP ONE (16:32)
[2017-04-01] MEDS ORDERED: NEOSTIGMINE 1 MG/ML 10 ML VIAL ONE (16:32)
[2017-04-01] MEDS ORDERED: PROPOFOL 10 MG/ML 20 ML VIAL IV ONE (16:32)
[2017-04-01] MEDS ORDERED: ROCURONIUM BROMIDE 10 MG/ML 10 ML VIAL IV ONE (16:32)
[2017-04-01] MEDS ORDERED: DEXAMETHASONE SOD PHOS (MDV) 100 MG/10 ML VIAL ONE (16:32)
[2017-04-01] MEDS ORDERED: GLYCOPYRROLATE 0.2 MG/ML 2 ML VIAL ONE (16:32)
[2017-04-01] MEDS ORDERED: SUCCINYLCHOLINE CHLORIDE 100 MG/5 ML SYR IV ONE (16:32)
[2017-04-01] MEDS ORDERED: MIDAZOLAM 2 MG/2 ML VIAL ONE (16:32)
[2017-04-01] MEDS ORDERED: BUPIVACAIN-EPI 0.25%-1:200,000 30 ML VIAL SQ ONE ×2 (16:45)
[2017-04-01] MEDS ORDERED: LACTATED RINGERS 1,000 ML IV ONE (17:05)
--- NOTE | 2017-04-01 17:59 | P.OP ---
Date of Procedure: 04/01/17 Procedure(s) Performed: PREOPERATIVE DIAGNOSIS: Acute cholecystitis POSTOPERATIVE DIAGNOSIS: Same PROCEDURE: Laparoscopic cholecystectomy SURGEON: Bennie EBL: Minimal see anesthesia record ANESTHESIA: Gen. COMPLICATIONS: None OPERATIVE PROCEDURE: The patient was brought and placed on the operating room table in the supine position. The patient was placed under general anesthesia at that time. The abdomen was prepped and draped in the usual sterile fashion. A small vertical infraumbilical incision was made. The fascia was grasped with the Edna forceps. The fascia was retracted anteriorly. The Veress needle was advanced into the peritoneal cavity. The saline drop test was normal. Insufflation took place up to 15 mmHg. A 5 mm optical trocar was advanced and the peritoneal cavity. 2 additional 5 mm trochars were placed in the right upper quadrant under direct visualization. A 10 mm trocar was advanced into the epigastric incision site. The gallbladder was inspected. It was noted to be significantly distended and somewhat firm. A small opening in the fundus took place using electrocautery and the contents were evacuated. This was bilious in nature. The gallbladder was retracted superiorly and laterally. The peritoneum overlying the infundibulum was bluntly dissected. The patient's cystic duct was visualized. The junction between the cystic duct common and hepatic duct was identified. The cystic duct was then divided after placement of a 2-0 Ethibond stitch tied down using the tie knot device. An additional clip was also placed on the patient's side. The cystic artery was identified and clipped as well. A small vessel was seen along the gallbladder fossa and clipped as well. The gallbladder was then removed from the liver bed using electrocautery. The gallbladder was then removed from the epigastric trocar site with an Endo Catch bag. The gallbladder fossa was irrigated with saline. There was no evidence of any bleeding or biliary drainage seen. The trochars were then removed. The fascia at the 10 millimeter site was closed using a [id number] 0 Vicryl stitch. The skin at all 4 sites was closed using a 4-0 Monocryl stitch. The more medial right upper quadrant 5 mm trocar site incision had a small amount of oozing and this was controlled using a single [id number] 4-0 Monocryl stitch. Steri-Strips and sterile dressings were applied. At the end of this procedure the sponge and needle counts were correct. DISPOSITION: Stable to the recovery room
[2017-04-01 18:07] VITALS: RESP 16
[2017-04-02] MEDS: MORPHINE SULFATE 4 MG/ML SYRINGE IV PRN ×2 (01:07→07:26)
[2017-04-02] MEDS: SODIUM CHLORIDE 0.9% 1,000 ML IV SCH ×2 (01:10→08:43)
[2017-04-02 07:43] VITALS: BP 105/64; PULSE 74; TEMP 98.2
[2017-04-02 08:26] LABS: ALT 58 U/L (9-52); AST 48 U/L (14-36); Alkaline Phosphatase 60 U/L (38-126); Anion Gap 10 mmol/L; Blood Urea Nitrogen 18 mg/dL (7-17); Calcium 8.1 mg/dL (8.4-10.2); Carbon Dioxide 18 mmol/L (22-30); Chloride 110 mmol/L (98-107); Glucose 108 mg/dL (74-99); Non-African American GFR(MDRD) >60 (>60 ml/min/1.73 sqM); Potassium 4.2 mmol/L (3.5-5.1); Sodium 138 mmol/L (137-145); Total Bilirubin 0.4 mg/dL (0.2-1.3); Total Protein 4.7 g/dL (6.3-8.2)
[2017-04-02 08:31] LABS: Basophils % (A) 0 %; CHCM 32.8; Eosinophils # (A) 0.1 k/uL (0-0.7); Eosinophils % (A) 2 %; HCT 32.4 % (34.0-46.0); HDW 2.52; HGB 10.5 gm/dL (11.4-16.0); Luc # (Auto) 0.05; Luc % (Auto) 2; Lymphocytes # (A) 0.4 k/uL (1.0-4.8); Lymphocytes % (A) 11 %; MCH 31.9 pg (25.0-35.0); MCHC 32.5 g/dL (31.0-37.0); MCV 98.2 fL (80.0-100.0); Mean Platelet Volume 7.5; Monocytes # (A) 0.1 k/uL (0-1.0); Monocytes % (A) 3 %; Neutrophils # (A) 2.8 k/uL (1.3-7.7); Neutrophils % (A) 82 %; RBC 3.29 m/uL (3.80-5.40); RDW 13.5 % (11.5-15.5); WBC 3.4 k/uL (3.8-10.6)
--- NOTE | 2017-04-02 08:33 | PN ---
DATE OF SERVICE: 04/01/2017 CHIEF COMPLAINT: Cholecystitis. INTERVAL HISTORY: Patient seen over the weekend after she was admitted to the hospital by Dr. Patel on consultation. She presents to the hospital complaining of pain in the right shoulder region with radiation to the right back and neck. This is associated with some upper abdominal pain as well. She had episodes of nausea and vomiting. She says her pain was fairly short-lived in the abdomen but the pain in the shoulder has persisted. The patient had a history of known gallstones. An ultrasound done here shows gallstones with a thickened gallbladder wall. She had a fever last night of 101. She has a history of hepatitis B and apparently during a course of chemotherapy for lymphoma in the past she had an exacerbation of her liver dysfunction and went through a fairly extensive work-up. She was seen by GI during this hospitalization. No need for ERCP was indicated. She states that she was told that she did not have liver cirrhosis. The patient denies any change in the color of her skin, urine or stool. She was also seen by orthopedics regarding her neck and shoulder pain. No definite other etiology for the pain was elucidated. PHYSICAL EXAM: Abdomen is soft, nondistended. Mild tenderness in the epigastric region. No rebound or guarding. No palpable masses. IMPRESSION: A 66-year-old female with suspected acute cholecystitis. PLAN: The patient and I discussed the options in detail. There are no guarantee that the patient's pain is related to the gallbladder, however, the patient's clinical scenario currently supports that as the most likely source of her pain, nausea, vomiting and fevers. The patient and I decided to proceed with laparoscopic cholecystectomy, possible open cholecystectomy. The risks of bleeding, infection, biloma, common bile duct injury, persistent pain, diarrhea, conversion to an open procedure were discussed. She understands and wishes to proceed.
[2017-04-02] MEDS: ENOXAPARIN 40 MG/0.4 ML SYRINGE SQ SCH (08:43)
[2017-04-02] MEDS: PANTOPRAZOLE 40 MG/10 ML VIAL IV SCH (08:43)
--- NOTE | 2017-04-02 09:44 | P.PN ---
Subjective Principal diagnosis: Right shoulder, neck, and bilateral knee pain. The patient is a 66-year-old female who was admitted through the emergency department with right shoulder and neck pain. She was found to have cholecystitis and underwent a laparoscopic cholecystectomy yesterday by Dr. Avery. We were consulted for further evaluation of her neck and shoulder pain as well as bilateral knee pain. Today, the patient states that her pain has improved but she has not been out of bed since surgery. The patient denies fever, chills, nausea, vomiting, shortness breath, and chest pain at this time. She states her pain is controlled at this time. She currently has a K pad to her right shoulder and neck area. Objective - Vital Signs Vital signs: Vital Signs Temp 98.2 F 04/02/17 07:42 Pulse 74 04/02/17 07:42 Resp 16 04/02/17 01:38 BP 105/64 04/02/17 07:42 Pulse Ox 94 L 04/02/17 07:42 Intake & Output 04/01/17 04/02/17 04/02/17 18:59 06:59 18:59 Intake Total 1550 1500 Output Total 10 Balance 1540 1500 Intake: IV 1550 1500 Sodium Chloride 0.9% 1, 1500 000 ml @ 125 mls/hr IV . Q8H FERNANDO Rx#:[id number] Output: Estimated Blood Loss 10 Other: # Voids 1 - Exam The patient is in no acute distress. She is alert and oriented 3. Exam of the neck reveals mild limitation in cervical rotation secondary to pain there is slight tenderness to palpation of the paraspinal musculature. She is also having pain to the right trapezius. Exam of the bilateral upper extremities reveal no pain upon palpation or upon range of motion. Exam of the bilateral lower extremities reveal some pain to the medial joint line of the right knee. There is no pain upon passive range of motion to the bilateral lower extremities. Neurological and circulatory status is intact to the bilateral upper and lower extremities. - Labs CBC & Chem 7: 04/02/17 07:30 04/02/17 07:30 Labs: Abnormal Lab Results - Last 24 Hours (Table) 04/01/17 04/02/17 04/02/17 Range/Units 07:40 07:30 07:30 WBC 3.4 L (3.8-10.6) k/uL RBC 3.29 L (3.80-5.40) m/uL Hgb 10.5 L (11.4-16.0) gm/dL Hct 32.4 L (34.0-46.0) % Plt Count 133 L (150-450) k/uL Lymphocytes # 0.4 L (1.0-4.8) k/uL Chloride 110 H 110 H (98-107) mmol/L Carbon Dioxide 18 L (22-30) mmol/L BUN 18 H (7-17) mg/dL Glucose 108 H (74-99) mg/dL Calcium 8.1 L (8.4-10.2) mg/dL AST 41 H 48 H (14-36) U/L ALT 61 H 58 H (9-52) U/L Total Protein 4.8 L 4.7 L (6.3-8.2) g/dL Albumin 2.8 L 2.7 L (3.5-5.0) g/dL Microbiology - Last 24 Hours (Table) 03/31/17 17:52 Blood Culture - Preliminary Blood No Growth after 24 hours Assessment and Plan (1) Degenerative arthritis of cervical spine Status: Acute (2) Cholelithiasis Status: Acute (3) Degenerative arthritis of right knee Status: Acute Plan: The clinical findings were discussed with the patient. The patient will be most likely discharged home this afternoon after being seen by Dr. Avery. Continue K-pad as tolerated. The patient was encouraged to make an appointment with Dr. Tavares in the next few weeks after she has recovered from her cholecystectomy. We would be happy to see her on an outpatient basis.
[2017-04-02] MEDS ORDERED: diphenhydrAMINE 25 MG CAP PO PRN (09:56)
--- NOTE | 2017-04-02 10:01 | PN ---
ADMISSION DATE: 03/31/2017 DATE OF SERVICE: 04/01/2017 PRESENTING COMPLAINT: Abdominal pain, nausea, vomiting. INTERVAL HISTORY: This is a 66-year-old female who presented to the emergency department with an episode of shoulder pain going to the necks, some stiffness in the right arm with associated nausea and vomiting for 2 episodes. Today patient is awaiting surgical intervention for cholelithiasis. Patient is anxious appearing. Sister is at the bedside asking many multiple questions. Patient also had an episode of a rash developing on her arms and chest. Eyes were swollen. Patient received Benadryl to assist in alleviating the symptoms as well as stoppage of the offending antibiotic. Review of systems done for constitutional, cardiovascular, GI, pulmonary with relevant findings as above. CURRENT MEDICATIONS: Lovenox, Ativan, morphine, Protonix. PHYSICAL EXAM: VITAL SIGNS: Temperature 97.8, pulse 88, respiratory rate 16, blood pressure 103/64, oxygen saturation 94% on room air. GENERAL APPEARANCE: Patient is anxious appearing, awaiting surgery. Sister at the bedside. Patient's very fidgety. EYES: Pupils equal. Conjunctivae normal. NECK: JVD not raised. Mass not palpable. LUNGS: Clear to auscultation bilaterally. RESPIRATORY: Effort normal, unlabored. CARDIOVASCULAR: First and second sounds noted. No edema. ABDOMEN: Soft, tender to the right upper quadrant. Distant bowel sounds present x4. Liver and spleen not palpable. PSYCHIATRY: Alert and oriented x3. Mood and affect are normal. INVESTIGATIONS: White blood cell count 5.8, hemoglobin 12.2, platelet count 128. Sodium 140, potassium 4.3, BUN 17, creatinine 0.81. AST 41, ALT 61. Albumin 2.8. ASSESSMENT: 1. Gallstones with acute cholecystitis with sepsis-like picture, present on admission. 2. Possible cervical spine degenerative joint disease with radiculopathy going down the right shoulder and the right arm. 3. Rule out shoulder pathology. 4. Non-Hodgkin's lymphoma. 5. Anxiety, depression, not otherwise specified. 6. Hypercholesteremia. 7. Emphysema in a current smoker. PLAN: Patient is to receive a lap cholecystectomy today. Patient's DVT prophylaxis is currently on hold. Awaiting hematology to see the patient. Orthopedics has seen the patient and no planned interventions from them. Plan of care was discussed in detail with the patient and the sister. Patient was seen and examined by nurse practitioner, Luma Acuna, and all elements of the case discussed with attending, Dr. Meyer.
--- NOTE | 2017-04-02 10:54 | PN ---
DATE OF SERVICE: 04/01/2017 ATTENDING NOTE: This patient was seen and examined by me this morning. I do agree with the care with my nurse practitioner and I note patient admitted with acute cholecystitis, sepsis-like picture, gallstones. Orthopedics is also consulted with the cervical spine DJD. Patient's sister at the bedside. On examination, some right upper quadrant tenderness. Lungs are clear. INVESTIGATIONS: White count 5.8, potassium 4.3. Chest x-ray is reviewed. ASSESSMENT: 1. Acute cholecystitis sepsis-like picture present on admission with gallstones. Due for surgery today. 2. Possible cervical spine degenerative joint disease with radiculopathy around the right shoulder and right arm, being followed by Orthopedics. 3. Emphysema, current smoker. PLAN: Continue with antibiotics. Care was discussed with the patient. Will have Orthopedics talk to the patient about further intervention, probably NSAIDs at the present time, patient pending surgery.
[2017-04-02] MEDS: HYDROcodone/APAP 5-325MG 1 EACH TAB PO PRN ×2 (11:35→14:56)
--- NOTE | 2017-04-02 11:35 | P.PN ---
Subjective Principal diagnosis: Cholecystitis Patient doing better today. Her pain is improved. She is tolerating her diet. She would like to go home today. Her labs are fairly stable. Objective - Vital Signs Vital signs: Vital Signs Temp 98.2 F 04/02/17 07:42 Pulse 74 04/02/17 07:42 Resp 16 04/02/17 01:38 BP 105/64 04/02/17 07:42 Pulse Ox 94 L 04/02/17 07:42 Intake & Output 04/01/17 04/02/17 04/02/17 18:59 06:59 18:59 Intake Total 1550 1500 Output Total 10 Balance 1540 1500 Intake: IV 1550 1500 Sodium Chloride 0.9% 1, 1500 000 ml @ 125 mls/hr IV . Q8H FERNANDO Rx#:[id number] Output: Estimated Blood Loss 10 Other: # Voids 1 - Exam Abdomen: Soft, nondistended, nontender, incisions clean and dry - Labs CBC & Chem 7: 04/02/17 07:30 04/02/17 07:30 Labs: Abnormal Lab Results - Last 24 Hours (Table) 04/02/17 04/02/17 Range/Units 07:30 07:30 WBC 3.4 L (3.8-10.6) k/uL RBC 3.29 L (3.80-5.40) m/uL Hgb 10.5 L (11.4-16.0) gm/dL Hct 32.4 L (34.0-46.0) % Plt Count 133 L (150-450) k/uL Lymphocytes # 0.4 L (1.0-4.8) k/uL Chloride 110 H (98-107) mmol/L Carbon Dioxide 18 L (22-30) mmol/L BUN 18 H (7-17) mg/dL Glucose 108 H (74-99) mg/dL Calcium 8.1 L (8.4-10.2) mg/dL AST 48 H (14-36) U/L ALT 58 H (9-52) U/L Total Protein 4.7 L (6.3-8.2) g/dL Albumin 2.7 L (3.5-5.0) g/dL Microbiology - Last 24 Hours (Table) 03/31/17 17:52 Blood Culture - Preliminary Blood No Growth after 24 hours Assessment and Plan (1) Cholelithiasis Narrative/Plan: Stable for discharge from my standpoint. Follow-up in the office 1-2 weeks. Status: Acute
[2017-04-02] MEDS: LEVOFLOXACIN 250MG-D5W PMX 250 MG in DEXTROSE/WATER 1 50ML.BAG IVPB SCH (13:11)
--- NOTE | 2017-04-03 07:12 | PN ---
DATE OF SERVICE: 04/02/2017 PRESENTING COMPLAINT: Abdominal pain, nausea and vomiting. INTERVAL HISTORY: This is a 66-year-old female who presented to the emergency department with episodic shoulder pain going to the neck, sometimes stiffness in the right arm with associated nausea and vomiting for 2 episodes. Today, patient is status post laparoscopic cholecystectomy. Patient again is anxious-appearing. No family at the bedside. Patient does have a few questions this morning; however, states she feels so much better. Patient's vital signs are normal. Patient has walked in the hallway. Patient states pain is well controlled. Patient discussed with us regarding when she can go home. Review of systems done for constitutional, cardiovascular, GI, pulmonary, with relevant findings as above. CURRENT MEDICATIONS: Lovenox, Ativan, morphine, Protonix. PHYSICAL EXAM: VITAL SIGNS: 98.8, pulse 84, respirations 16, blood pressure 104/62, oxygen saturation 93% on room air. GENERAL APPEARANCE: Patient is anxious-appearing; however, states she feels much better, sitting at the bedside. No acute distress noted or voiced. EYES: Pupils are equal. Conjunctivae are normal. NECK: JVD not raised. Mass not palpable. LUNGS: Clear to auscultation bilaterally. Respiratory effort normal, unlabored. CARDIOVASCULAR: First and second sounds noted. No edema. ABDOMEN: Tender to the right upper quadrant and at the midline incisional area. Distant bowel sounds present x4. Liver and spleen not palpable. SKIN: Patient had a diffuse rash over the upper arms and face. Some swelling noted to the eyelids as well, the patient received Benadryl. PSYCHIATRY: Alert and oriented x3. Mood and affect are normal. INVESTIGATIONS: White blood cell count 3.4, hemoglobin 10.5, platelet count 133, sodium 138, potassium 4.2, AST 48, ALT 58, alkaline phosphatase 60. ASSESSMENT: 1. Gallstones with acute cholecystitis with sepsis-like picture, present on admission, now status post-laparoscopic cholecystectomy. 2. Possible cervical spine degenerative joint disease with radiculopathy going down the right shoulder and the right arm. 3. Rule out shoulder pathology. 4. Non-Hodgkin's lymphoma. 5. Anxiety, depression not otherwise specified. 6. Hypercholesteremia. 7. Emphysema in a current smoker. PLAN: Continue with antibiotics. Plan of care was discussed with the patient. Orthopedics continues to follow regarding possible interventions for neck and shoulder pain, may possibly suggest NSAIDs at the present time. Will continue to follow. Patient was seen and examined by nurse practitioner, Luma Acuna and all elements of the case discussed with the attending, Dr. Meyer.
--- NOTE | 2017-04-03 13:56 | PN ---
DATE OF SERVICE: 04/02/2017 PRESENTING COMPLAINT: Abdominal surgery. INTERVAL HISTORY: Patient is doing well after surgery, tolerating a diet. Some pain in the abdominal ( ) been out of bed. ( ) the patient is actually better. Review of systems done for constitutional, cardiovascular, GI, pulmonary; relevant findings as above. Current medications are reviewed. On examination, temperature 98.2, pulse 74, respiratory rate 16, blood pressure 105/64, pulse ox 94%. GENERAL APPEARANCE: Sitting up, comfortable. EYES: Pupils equal. Conjunctivae normal. NECK: JVD not raised. Mass not palpable. RESPIRATORY: Effort normal. LUNGS: Fair air entry. CARDIOVASCULAR: First and second sounds normal. No edema. ABDOMEN: Tender, soft. Liver and spleen not palpable. PSYCH: Alert and oriented x3. Mood and affect normal. INVESTIGATIONS: Hemoglobin 10.5, BUN 18, creatinine 0.66. ASSESSMENT: 1. Gallstone acute cholecystitis clinically improved. 2. Cervical spine degenerative joint disease with radiculopathy to the right arm. 3. Non-Hodgkin's lymphoma, history of. 4. Anxiety, depression, not otherwise specified. 5. Hypercholesterolemia. 6. Emphysema in a current smoker. PLAN: Patient advised against smoking. Overall the patient is doing better. Orthopedics is following the patient's neck pain.
--- NOTE | 2017-04-08 14:16 | CDI ---
In responding to this query, please exercise your independent professional judgment. The [facility] Coding Staff and Clinical Documentation Specialists appreciate your assistance in clarifying documentation, maintaining compliance with coding guidelines, accurately documenting patients condition and capturing severity of illness. The fact that a question is asked does not imply that any particular answer is desired or expected. Communication forms are a method of clarifying documentation and are not made part of the Legal Health Record. Thank you in advance for your clarification. Last Revision, September 2015 Demario Serrano [address] [place] [address] Documentation Clarification Form Date: 04/08/2017 2:03:00 PM From: Manda Jackson/Samra Caicedo Admit Date: 04/02/2017 8:16:00 AM Patient Name: Radha Cho Visit Number: [id number] Discharge Date: Dr. Aristeo Avery Sepsis like picture is documneted in the H&P and in Dr. Meyer's progress notes. Patient history/risk factors: Patient was admitted for cholelithiasis with acute cholecystitis. Patient has Non-Hodgkin's lymphoma. Clinical Indicators: Tiredness, febrile. Lab findings: WBCs on admission 6.9, lactic acid not done Vital Signs: T. 98.1 on admission and up to 101.3 on 03/31, P 95 on admission and up to 105 on 03/31, R. 20 on admission, BP 141/71 on admission. Treatment: Patient received IV Levofloxacin on 03/31 and 04/01 In your professional opinion, can you please clarify was sepsis ruled in or ruled out? Other Unable to determine Please document in your progress notes and discharge summary in order to capture severity of illness and risk of mortality. Include clinical findings that support your diagnosis. FYI: Press F11 to launch patient chart. Place X here if this finding has no clinical significance, is not applicable or if you are not able to provide any additional documentation. PAT
--- NOTE | 2017-04-22 09:26 | CDI ---
In responding to this query, please exercise your independent professional judgment. The [facility] Coding Staff and Clinical Documentation Specialists appreciate your assistance in clarifying documentation, maintaining compliance with coding guidelines, accurately documenting patients condition and capturing severity of illness. The fact that a question is asked does not imply that any particular answer is desired or expected. Communication forms are a method of clarifying documentation and are not made part of the Legal Health Record. Thank you in advance for your clarification. Last Revision, September 2015 Demario Serrano [address] [facility] [place] [address] Documentation Clarification Form Date: 04/08/2017 2:03:00 PM From: Manda Renetta Phone: Admit Date: 04/02/2017 8:16:00 AM Patient Name: Radha Cho Visit Number: [id number] Discharge Date: Dr. Aristeo Avery Thank you for signing your query. Please document your response before signing this query. Sepsis like picture is documneted in the H&P and in Dr. Meyer's progress notes. Patient history/risk factors: Patient was admitted for cholelithiasis with acute cholecystitis. Patient has Non-Hodgkin's lymphoma. Clinical Indicators: Tiredness, febrile. Lab findings: WBCs on admission 6.9, lactic acid not done Vital Signs: T. 98.1 on admission and up to 101.3 on 03/31, P 95 on admission and up to 105 on 03/31, R. 20 on admission, BP 141/71 on admission. Treatment: Patient received IV Levofloxacin on 03/31 and 04/01 In your professional opinion, can you please clarify was sepsis ruled in or ruled out? Other Unable to determine Please document in your progress notes and discharge summary in order to capture severity of illness and risk of mortality. Include clinical findings that support your diagnosis. FYI: Press F11 to launch patient chart. ____defer to samanta_ Place X here if this finding has no clinical significance , is not applicable or if you are not able to provide any additional documentation. MTDD
--- NOTE | 2017-05-13 16:01 | CDI ---
In responding to this query, please exercise your independent professional judgment. The [facility] Coding Staff and Clinical Documentation Specialists appreciate your assistance in clarifying documentation, maintaining compliance with coding guidelines, accurately documenting patients condition and capturing severity of illness. The fact that a question is asked does not imply that any particular answer is desired or expected. Communication forms are a method of clarifying documentation and are not made part of the Legal Health Record. Thank you in advance for your clarification. Last Revision, September 2015 Demario Serrano [address] [place] [address] Documentation Clarification Form Date: 04/08/2017 2:03:00 PM From: Manda Jackson/Samra Caicedo Admit Date: 04/02/2017 8:16:00 AM Patient Name: Radha Cho Visit Number: [id number] Discharge Date: Dr. Jeremy Meyer Sepsis like picture is documneted in the H&P and in Dr. Meyer's progress notes. Patient history/risk factors: Patient was admitted for cholelithiasis with acute cholecystitis. Patient has Non-Hodgkin's lymphoma. Clinical Indicators: Tiredness, febrile. Lab findings: WBCs on admission 6.9, lactic acid not done Vital Signs: T. 98.1 on admission and up to 101.3 on 03/31, P 95 on admission and up to 105 on 03/31, R. 20 on admission, BP 141/71 on admission. Treatment: Patient received IV Levofloxacin on 03/31 and 04/01 In your professional opinion, can you please clarify was sepsis ruled in or ruled out? Other Unable to determine PLEASE DOCUMENT IN YOUR DISCHARGE SUMMARY in order to capture severity of illness and risk of mortality. Include clinical findings that support your diagnosis. FYI: Press F11 to launch patient chart. Place X here if this finding has no clinical significance, is not applicable or if you are not able to provide any additional documentation. LESLIED
--- NOTE | 2017-06-02 14:42 | PN ---
ADDENDUM: DATE OF SERVICE: 04/02/17 ASSESSMENT: 1. Acute cholecystitis with gallstones causing sepsis, present on admission. LESLIED
== END 2017-04-02 15:20 | disposition home or self-care (01) | DRG 854 ==
LOC: EC 22:52 → 3SUR 03-31 03:50 → OBSVTOIN 04-02 08:16
PROVIDERS: ADMIT Surgery; ATTEND Surgery
PROC: 0FT44ZZ Resection of Gallbladder, Percutaneous Endoscopic Approach (ICD-10-PCS; principal; 2017-04-01 16:00)
DX: A41.9 Sepsis, unspecified organism (principal); K80.00 Calculus of gallbladder with acute cholecystitis without obstruction; C85.90 Non-Hodgkin lymphoma, unspecified, unspecified site; B18.1 Chronic viral hepatitis B without delta-agent; J43.9 Emphysema, unspecified; E78.00 Pure hypercholesterolemia, unspecified; F17.210 Nicotine dependence, cigarettes, uncomplicated; F90.9 Attention-deficit hyperactivity disorder, unspecified type; I10 Essential (primary) hypertension; K21.9 Gastro-esophageal reflux disease without esophagitis; M17.11 Unilateral primary osteoarthritis, right knee; M47.22 Other spondylosis with radiculopathy, cervical region; K44.9 Diaphragmatic hernia without obstruction or gangrene; R21 Rash and other nonspecific skin eruption; F41.9 Anxiety disorder, unspecified; Z79.899 Other long term (current) drug therapy; Z88.1 Allergy status to other antibiotic agents; Z88.0 Allergy status to penicillin; Z88.8 Allergy status to other drugs, medicaments and biological substances; Z82.49 Family history of ischemic heart disease and other diseases of the circulatory system
CPT/HCPCS: 36415; 71275; 72052; 72070; 76705; 80053; 82150; 82550; 82553; 83690; 83735; 84484; 85025; 85610; 85730; 87040; 88304; 96361; 96374; 96376; 99285

== ENCOUNTER → 2017-06-17 | Outpatient (CLI) | payer MEDICARE, OTHER ==
[2017-06-17 11:20] LABS: Basophils % (A) 1 %; CH 32.1; CHCM 33.3; Eosinophils # (A) 0.6 k/uL (0-0.7); Eosinophils % (A) 13 %; HCT 43.3 % (34.0-46.0); HDW 2.59; HGB 14.3 gm/dL (11.4-16.0); Luc # (Auto) 0.12; Luc % (Auto) 2; Lymphocytes # (A) 1.3 k/uL (1.0-4.8); Lymphocytes % (A) 25 %; MCH 31.9 pg (25.0-35.0); MCV 96.8 fL (80.0-100.0); Mean Platelet Volume 7.4; Monocytes # (A) 0.3 k/uL (0-1.0); Monocytes % (A) 5 %; Neutrophils # (A) 2.7 k/uL (1.3-7.7); Neutrophils % (A) 54 %; RBC 4.47 m/uL (3.80-5.40); RDW 13.5 % (11.5-15.5); WBC 5.1 k/uL (3.8-10.6); WBC (Perox) 5.26
[2017-06-17 11:26] LABS: ALT 49 U/L (9-52); AST 36 U/L (14-36); Alkaline Phosphatase 71 U/L (38-126); Anion Gap 9 mmol/L; Blood Urea Nitrogen 20 mg/dL (7-17); Calcium 9.4 mg/dL (8.4-10.2); Carbon Dioxide 27 mmol/L (22-30); Chloride 104 mmol/L (98-107); Cholesterol 260 mg/dL (<200); Glucose 87 mg/dL (74-99); HDL Cholesterol 89 mg/dL (40-60); Non-African American GFR(MDRD) >60 (>60 ml/min/1.73 sqM); Potassium 4.7 mmol/L (3.5-5.1); Sodium 140 mmol/L (137-145); Total Bilirubin 0.5 mg/dL (0.2-1.3); Total Protein 6.3 g/dL (6.3-8.2); Triglycerides 163 mg/dL (<150)
== END | disposition home or self-care (01) ==
LOC: LABWHC1 10:52
PROVIDERS: ATTEND Internal Medicine
DX: C85.99 Non-Hodgkin lymphoma, unspecified, extranodal and solid organ sites (principal); E78.5 Hyperlipidemia, unspecified
CPT/HCPCS: 36415; 80053; 80061; 85025

== ENCOUNTER → 2017-09-09 | Outpatient (CLI) | payer MEDICARE, OTHER ==
[2017-09-09 12:06] LABS: Blood Urea Nitrogen 21 mg/dL (7-17); Non-African American GFR(MDRD) >60 (>60 ml/min/1.73 sqM)
--- NOTE | 2017-09-09 14:12 | CT ---
EXAMINATION TYPE: CT ChestAbdPelvis w con DATE OF EXAM: 09/09/2017 COMPARISON: CTA chest March 31, 2017. CT abdomen and pelvis March 22, 2016. Original CT chest abdomen and pelvis May 18, 2010 HISTORY: Follow up to follicular lymphoma originated in inguinal region CT DLP: 473.5 mGycm. Automated Exposure Control for Dose Reduction was Utilized. CONTRAST: CT scan of the thorax, abdomen and pelvis is performed with IV Contrast, patient injected with 100 mL of Omnipaque 300. FINDINGS: LUNGS: There is persistent subpleural cystic change and reticulation in the periphery of the upper to mid lungs bilaterally. There is stable 7 x 5 mm subpleural nodule left upper lobe on axial image 20. This is unchanged from July 12, 2015. No new nodule or mass is present. No pleural effusion or pne umothorax is seen. Tracheobronchial tree is patent. MEDIASTINUM: There are no greater than 1 cm hilar or mediastinal lymph nodes. No cardiomegaly or pe ricardial effusion is seen. Coronary artery calcification is present. OTHER: No suspicious axillary adenopathy is seen on current study . LIVER/GB: There has been interval cholecystectomy. PANCREAS: No significant abnormality is seen. SPLEEN: No significant abnormality is seen. ADRENALS: No significant abnormality is seen. KIDNEYS: No significant abnormality is seen. BOWEL: Oral contrast reaches level of left colon. There is mild wall thickening in the left and sigmo id colon to rectum. Occasional diverticulum is seen. A mild colitis at this level cannot be entirely excluded. Correlate clinically. GENITAL ORGANS: No gross abnormality seen. LYMPH NODES: No greater than 1cm abdominal or pelvic lymph nodes are appreciated currently. Prominent retroperitoneal lymph nodes remain stable or diminished in size even from most recent prior. Surgica l clips right groin region are redemonstrated. OSSEOUS STRUCTURES: There is multilevel spurring in the spine. There is disc space narrowing with scl erosis at lumbosacral junction. OTHER: There is moderate plaquing abdominal aorta extending into pelvic branch vessels. IMPRESSION: 1. No worrisome new mass or adenopathy is seen to suggest neoplastic recurrence. 2. Cannot exclude new mild distal colitis, correlate clinically.
== END | disposition home or self-care (01) ==
LOC: RADCTMAIN 11:32
PROVIDERS: ATTEND Internal Medicine
DX: C82.80 Other types of follicular lymphoma, unspecified site (principal)
CPT/HCPCS: 82565; 84520; 71260; 74177; 36415; Q9967

== ENCOUNTER → 2017-12-25 | Outpatient (CLI) | payer MEDICARE, OTHER ==
[2017-12-25 13:47] LABS: Basophils % (A) 1 %; Eosinophils # (A) 0.6 k/uL (0-0.7); Eosinophils % (A) 8 %; HCT 41.7 % (34.0-46.0); HGB 13.7 gm/dL (11.4-16.0); Lymphocytes # (A) 1.4 k/uL (1.0-4.8); Lymphocytes % (A) 22 %; MCH 31.1 pg (25.0-35.0); MCV 94.5 fL (80.0-100.0); Mean Platelet Volume 7.2; Monocytes # (A) 0.3 k/uL (0-1.0); Monocytes % (A) 5 %; Neutrophils # (A) 4.1 k/uL (1.3-7.7); Neutrophils % (A) 62 %; Platelet Count 192 k/uL (150-450); RBC 4.41 m/uL (3.80-5.40); RDW 12.2 % (11.5-15.5); WBC 6.7 k/uL (3.8-10.6)
[2017-12-25 14:01] LABS: ALT 35 U/L (9-52); AST 24 U/L (14-36); Albumin 4.3 g/dL (3.5-5.0); Alkaline Phosphatase 80 U/L (38-126); Anion Gap 10 mmol/L; Blood Urea Nitrogen 21 mg/dL (7-17); Calcium 9.6 mg/dL (8.4-10.2); Carbon Dioxide 28 mmol/L (22-30); Chloride 102 mmol/L (98-107); Glucose 88 mg/dL (74-99); Sodium 140 mmol/L (137-145); Total Bilirubin 0.4 mg/dL (0.2-1.3); Total Protein 6.3 g/dL (6.3-8.2)
== END | disposition home or self-care (01) ==
LOC: LABWHC1 13:25
PROVIDERS: ATTEND Internal Medicine
DX: B18.1 Chronic viral hepatitis B without delta-agent (principal); E55.9 Vitamin D deficiency, unspecified
CPT/HCPCS: 36415; 80053; 82306; 85025

== ENCOUNTER → 2018-01-03 | Outpatient (CLI) | payer MEDICARE, OTHER ==
--- NOTE | 2018-01-03 15:57 | US ---
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 Yessenia Avery. TECHNIQUE: Targeted sonographic examination of the right inguinal region at the site of pain. FINDINGS: RIPRAP WORKER NOTES: Numerous lymph nodes are imaged right groin with largest node noted medial groin = 1.6 x 0.8 x 0.4cm. IMPRESSION: Numerous nonenlarged right inguinal lymph nodes are seen. Largest measures up to 8 mm short axis.
--- NOTE | 2018-01-03 16:09 | US ---
EXAMINATION TYPE: US groin LT DATE OF EXAM: 01/03/2018 COMPARISON: NONE CLINICAL HISTORY: 67-year-old female C82.80 FOLLICULAR LYMPHOMA; with follicular low grade B cell lym phoma; see right groin US today; Previous Right groin lymph node dissection Technique: Multiple sonographic images of the left inguinal region were obtained. FINDINGS: [employer] Worker notes: Multiple nodes are seen left groin with largest imaged inferiorly = 2.3 x 0.4 x 0. 4cm. IMPRESSION: Provided images show scattered lymph nodes in the left inguinal region. These are nonenlarged measuri ng up to 4 mm short axis.
== END | disposition home or self-care (01) ==
LOC: RADUSWWP 13:45
PROVIDERS: ATTEND Internal Medicine
DX: C82.80 Other types of follicular lymphoma, unspecified site (principal); R59.0 Localized enlarged lymph nodes

== ENCOUNTER → 2018-01-10 | Outpatient (CLI) | payer MEDICARE, OTHER ==
--- NOTE | 2018-01-13 09:10 | MM ---
Reason for exam: screening (asymptomatic). Last mammogram was performed 1 year and 5 months ago. History: Patient is postmenopausal and has history of high-risk lesion on a previous biopsy at age 56. Family history of premenopausal breast cancer in maternal cousin at age 30 and breast cancer in maternal cousin. High risk right mammotome panel of the right breast, January 27, 2007. Physical Findings: A clinical breast exam by your physician is recommended on an annual basis and results should be correlated with mammographic findings. MG 3D Screening Mammo W/Cad Bilateral CC, MLO, and XCCL view(s) were taken. Prior study comparison: August 16, 2016, bilateral MG 3d diag mammo w/cad SWATHI. March 30, 2010, bilateral diagnostic digital mammog. The breast tissue is heterogeneously dense. This may lower the sensitivity of mammography. No suspicious abnormality. No significant changes when compared with prior studies. ASSESSMENT: Negative, BI-RAD 1 RECOMMENDATION: Routine screening mammogram of both breasts in 1 year.
== END | disposition home or self-care (01) ==
LOC: RADMAMWWP 10:26
PROVIDERS: ATTEND Internal Medicine
DX: Z12.31 Encounter for screening mammogram for malignant neoplasm of breast (principal)
CPT/HCPCS: 77063; 77067

== ENCOUNTER → 2018-07-15 | Outpatient (CLI) | payer MEDICARE, OTHER ==
[2018-07-15 11:48] LABS: Basophils % (A) 1 %; Eosinophils # (A) 0.3 k/uL (0-0.7); Eosinophils % (A) 6 %; HCT 41.9 % (34.0-46.0); HGB 13.4 gm/dL (11.4-16.0); Lymphocytes # (A) 1.2 k/uL (1.0-4.8); Lymphocytes % (A) 27 %; MCH 30.6 pg (25.0-35.0); MCV 95.8 fL (80.0-100.0); Monocytes # (A) 0.2 k/uL (0-1.0); Monocytes % (A) 5 %; Neutrophils # (A) 2.7 k/uL (1.3-7.7); Neutrophils % (A) 61 %; Platelet Count 165 k/uL (150-450); RBC 4.38 m/uL (3.80-5.40); RDW 13.2 % (11.5-15.5); WBC 4.4 k/uL (3.8-10.6)
[2018-07-15 12:00] LABS: ALT 26 U/L (9-52); AST 19 U/L (14-36); Albumin 3.8 g/dL (3.5-5.0); Alkaline Phosphatase 59 U/L (38-126); Anion Gap 5 mmol/L; Blood Urea Nitrogen 15 mg/dL (7-17); Calcium 8.9 mg/dL (8.4-10.2); Carbon Dioxide 27 mmol/L (22-30); Chloride 110 mmol/L (98-107); Cholesterol 271 mg/dL (<200); Glucose 94 mg/dL (74-99); HDL Cholesterol 88 mg/dL (40-60); LDL Cholesterol,Calculated 160 mg/dL (0-99); Potassium 4.2 mmol/L (3.5-5.1); Sodium 142 mmol/L (137-145); Total Bilirubin 0.4 mg/dL (0.2-1.3); Total Protein 5.8 g/dL (6.3-8.2); Triglycerides 115 mg/dL (<150)
[2018-07-15 14:09] LABS: Erythrocyte Sedimentation Rate 7 mm/hr (0-20)
== END | disposition home or self-care (01) ==
LOC: LABWHC1 11:28
PROVIDERS: ATTEND Internal Medicine
DX: C82.80 Other types of follicular lymphoma, unspecified site (principal); Z13.6 Encounter for screening for cardiovascular disorders
CPT/HCPCS: 36415; 80053; 80061; 85025; 85652

== ENCOUNTER → 2019-02-03 | Outpatient (CLI) | payer MEDICARE, OTHER ==
[2019-02-03 20:06] LABS: Gliadin AB IgA, Unit <0.2 U/mL
== END ==
LOC: LABWHC1 12:00
PROVIDERS: ATTEND Internal Medicine
DX: K52.9 Noninfective gastroenteritis and colitis, unspecified (principal)
CPT/HCPCS: 36415; 83516; 85652

== ENCOUNTER → 2019-02-11 | Outpatient (CLI) | payer MEDICARE, OTHER ==
[2019-02-11 08:44] LABS: Albumin 4.4 g/dL (3.5-5.0); Calcium 9.6 mg/dL (8.4-10.2); Potassium 4.5 mmol/L (3.5-5.1); Total Bilirubin 0.5 mg/dL (0.2-1.3); Total Protein 6.8 g/dL (6.3-8.2)
--- NOTE | 2019-02-11 09:59 | CT ---
EXAMINATION TYPE: CT ChestAbdPelvis w con DATE OF EXAM: 02/11/2019 COMPARISON: 09/09/2017 HISTORY: Non Hodgkins Lymphoma. 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 CT DLP: 1052 mGycm. Automated Exposure Control for Dose Reduction was Utilized. CONTRAST: CT scan of the thorax, abdomen and pelvis is performed with IV Contrast, patient injected with 100 ml mL of Isovue 300. FINDINGS: LUNGS: There is an overall stable 6 x 3 mm left apical pleural nodule abutting linear pleural parench ymal scarring and paraseptal mild pulmonary emphysematous change. Biapical pleural parenchymal scarri ng is noted. Right lower lobe subpleural bleb is again seen. No new suspicious pulmonary nodules or m asses. No focal consolidation, pleural effusion or pneumothorax. The tracheobronchial tree is patent . MEDIASTINUM: There are no greater than 1 cm hilar or mediastinal lymph nodes. Moderate coronary arter y calcifications are present. No pericardial effusion is seen. OTHER: No additional significant abnormality is seen. LIVER/GB: No significant abnormality is appreciated. Gallbladder surgically absent. PANCREAS: No significant abnormality is seen. SPLEEN: No significant abnormality is seen. No splenomegaly. ADRENALS: No significant abnormality is seen. No nodule or thickening. KIDNEYS: Kidneys enhance symmetrically and excrete symmetrically without hydronephrosis.. BOWEL: There is long segment thickening of the sigmoid colon and scattered colonic diverticula. Findi ngs could be on the basis of chronic diverticulitis. No pericolonic fat stranding is seen at this dannie e to suggest acute colitis. No dilated large or small bowel is seen. Very small hiatal hernia suspect ed. GENITAL ORGANS: No gross abnormality seen. LYMPH NODES: No greater than 1cm abdominal or pelvic lymph nodes are appreciated. Right superficial i nguinal lymph node on series 3 image 124 measures upper limits of normal and 9 mm in short axis, slig htly smaller than the prior where this measured 1.0 cm in short axis. Postsurgical change of the righ t inguinal canal is also seen. OSSEOUS STRUCTURES: No suspicious osseous lesion. Degenerative changes are seen at L5-S1. OTHER: Extensive atherosclerosis is seen of the abdominal aorta and its branches. IMPRESSION: 1. No recurrent adenopathy. Slightly smaller right inguinal lymph node is upper limits of normal tali uring 9 mm (previously measuring 10 mm). 2. Persistent long segment bowel wall thickening of the sigmoid colon may relate to sequela of chroni c diverticulitis. Colonoscopy could be considered if not recently performed to exclude mucosal neopla sm. 3. Stable left apical 5 mm pulmonary nodule is favored to represent scarring although surveillance is recommended.
== END ==
LOC: RADCTMAIN 07:45
PROVIDERS: ATTEND Internal Medicine
DX: K57.92 Diverticulitis of intestine, part unspecified, without perforation or abscess without bleeding (principal); R91.1 Solitary pulmonary nodule; C82.10 Follicular lymphoma grade II, unspecified site
CPT/HCPCS: 80053; 71260; 74177; 36415; Q9967

== ENCOUNTER 2019-04-09 08:58 | Day surgery (SDC) | payer MEDICARE ==
[~2019-04-09 08:58] MED LIST: LACTATED RINGERS 1,000 ML IV SCH; LIDOCAINE 1% 20 ML VIAL (10MG/ML) FOR IV START INTRADERMA PRN
[2019-04-09 09:37] VITALS: TEMP 97.8
[2019-04-09] MEDS ORDERED: fentaNYL (PF) 50 MCG/ML 2 ML AMP ONE (09:59)
[2019-04-09] MEDS ORDERED: LIDOCAINE 1% INJ 10MG/ML (20 ML MDV) ONE (09:59)
[2019-04-09] MEDS ORDERED: MIDAZOLAM 2 MG/2 ML VIAL ONE (09:59)
[2019-04-09] MEDS ORDERED: PROPOFOL 10 MG/ML 20 ML VIAL IV ONE (09:59)
--- NOTE | 2019-04-09 11:18 | P.PCN ---
Date of Procedure: 04/09/19 Description of Procedure: Brief history: Patient is a pleasant scheduled for an elective upper endoscopy as well as colonoscopy as a part of evaluation of symptoms of epigastric abdominal pain, change in her bowel habits. The patient reports having pain diffusely in her upper abdomen across her umbilicus. She does have ibuprofen listed as a home medication. She also reports loose stool which she believes started after her cholecystectomy. She previously had a prolonged hospitalization for drug- induced liver injury. She also had evaluation colonoscopy in 2016 which showed evidence of colitis with pathology consistent with ischemic colitis. Procedure performed: Esophagogastroduodenoscopy with biopsy Colonoscopy with biopsy Estimated blood loss: Minimal. Preoperative diagnosis: Epigastric abdominal pain, change in bowel habits, screening colonoscopy Anesthesia: [facility] Procedure: After informed consent was obtained from the patient was brought into the endoscopy unit and IV sedation was administered by anesthesia under continuous monitoring. Initially upper endoscopy was done. The Olympus GF 190 video endoscope was inserted inserted into the mouth and esophagus intubated without any difficulty and was gradually advanced into the stomach and duodenum and carefully examined. The bulb and second part of the duodenum appeared normal, except for some mild erythema consistent with mild duodenitis which was biopsied. The scope was then withdrawn into the stomach adequately insufflated and the antrum and body, cardia and fundus were examined. There was multiple superficial ulcerations in the antrum of the stomach with biopsies taken. The antrum and body also appeared erythematous consistent with mild gastritis, with biopsies of the antrum and body taken. The patient had a small hiatal hernia. The scope was then withdrawn into the esophagus. The GE junction was located at 40 cm to the incisors. It appeared regular with no erythema erosions or ulcerations. Rest of the esophagus appeared normal. Patient tolerated the procedure well. At this time the patient continued to remain sedation. Initial digital rectal examination was normal. Olympus CF 190 video colonoscope was then inserted into the rectum and gradually advanced to the cecum without any difficulty. Careful examination was performed as the scope was gradually being withdrawn. The prep was excellent. The terminal ileum was intubated and appeared normal with biopsies taken. The cecum, ascending colon, transverse colon, appeared normal with biopsies taken of the right colon and transverse colon. Beginning at the distal transverse colon there was diffuse areas of erythema and narrowing and apparent scarring consistent with previously seen colitis on colonoscopy in 2016. Biopsies of the left colon and rectum were taken. Mild internal hemorrhoids seen. Retroflexion was performed in the rectum and no lesions were noted. Patient tolerated the procedure well. Impression: 1. Multiple superficial ulcerations of the antrum, biopsied. Moderate gastritis antrum and body, biopsied. Mild duodenitis, biopsied. Small hiatal hernia. 2. Mild to moderate left sided colitis. Mild internal hemorrhoids. Biopsies of the terminal ileum, right colon, transverse colon, left colon and rectum. Recommendations: Findings of this examination were discussed with the patient. Okay to continue diet. Would recommend avoidance of NSAIDs. We'll write prescription for omepr azole 20 mg twice a day. Await pathology from biopsies. Patient should follow- up with gastroenterology for further management in 3-4 weeks.
[2019-04-09 11:39] VITALS: BP 138/62; PULSE 65; RESP 18
== END 2019-04-09 11:31 | disposition home or self-care (01) ==
LOC: ORWHC2ENDO 08:58
PROVIDERS: ATTEND Internal Medicine
DX: K29.50 Unspecified chronic gastritis without bleeding (principal); K29.80 Duodenitis without bleeding; K44.9 Diaphragmatic hernia without obstruction or gangrene; K51.50 Left sided colitis without complications; K64.8 Other hemorrhoids; Z87.891 Personal history of nicotine dependence; Z85.72 Personal history of non-Hodgkin lymphomas; Z92.21 Personal history of antineoplastic chemotherapy
CPT/HCPCS: 43239; 45380; 88305

== ENCOUNTER → 2019-08-18 | Outpatient (CLI) | payer MEDICARE ==
[2019-08-18 15:10] LABS: HGB 14.2 gm/dL (11.4-16.0); MCH 31.5 pg (25.0-35.0); MCHC 34.5 g/dL (31.0-37.0); MCV 91.2 fL (80.0-100.0); Platelet Count 191 k/uL (150-450); RDW 12.8 % (11.5-15.5); WBC 5.6 k/uL (3.8-10.6)
[2019-08-18 19:01] LABS: African American GFR (CKD) 87.8 (60.0-200.0)
[2019-08-18 19:15] LABS: Folate, Serum 16.4 ng/mL
== END | disposition home or self-care (01) ==
LOC: LABWHC1 14:00
PROVIDERS: ATTEND Psychiatry & Neurology Psychiatry
DX: F33.41 Major depressive disorder, recurrent, in partial remission (principal)
CPT/HCPCS: 36415; 82565; 82607; 82746; 84439; 84443; 84481; 85027

== ENCOUNTER → 2020-07-09 | Outpatient (CLI) | payer MEDICARE, OTHER ==
--- NOTE | 2020-07-11 06:37 | PE ---
EXAMINATION TYPE: PET CT fusion skull to thigh DATE OF EXAM: 07/09/2020 COMPARISON: CT chest abdomen and pelvis February 11, 2019 HISTORY: Follicular lymphoma diagnosed right groin and neck 2009 per patient. History of prior surg ical excision. History of completed chemotherapy 2015. TECHNIQUE: Following the intravenous administration of 12.07 mCi of F-18 FDG, whole body images are performed from the skull base to the midthigh. Images are reviewed on the computer in the coronal, a xial, and sagittal planes. Reconstructed rotating images are created on independent workstation and reviewed on the computer. A noncontrast CT is performed in conjunction with the PET scan. SCAN: Subsequent Scan FINDINGS: MEAN SUV MEDIASTINUM: 0.65 MEAN SUV LIVER: 2.5 SKULL BASE AND NECK: No areas of abnormal hypermetabolic uptake. CHEST, MEDIASTINUM, AND HILAR REGION: No areas of abnormal hypermetabolic uptake. ABDOMEN AND PELVIS: Surgical clips right groin region consistent with level of prior excision. No are as of abnormal hypermetabolic uptake especially right groin region. No local recurrence. Prominent bu t hypodense lymph node inferior to the clips measures 13 x 9 mm axial image 234 is redemonstrated. No abnormal hypermetabolic uptake noted. OSSEOUS STRUCTURES: No areas of abnormal hypermetabolic uptake. OTHER CT: There is a calcified 5 mm nodular granuloma periphery left upper lobe image 74. Coronary ar janelle calcification is present which is noted marker for underlying coronary artery disease. Cholecystectomy clips are seen. Moderate calcified plaque of the abdominal aorta extends into branch vessels. IMPRESSION: No new areas of abnormal hypermetabolic uptake. Prominent Inferior right groin lymph node redemonstrated not significantly changed in size from most recent CT, diminished in size from prior studies. This lymph node remains ametabolic.
== END | disposition home or self-care (01) ==
LOC: RADPETMAIN 10:55
PROVIDERS: ATTEND Internal Medicine
DX: C85.88 Other specified types of non-Hodgkin lymphoma, lymph nodes of multiple sites (principal); Z91.048 Other nonmedicinal substance allergy status
CPT/HCPCS: 78815; A9552

== ENCOUNTER → 2020-10-24 | Outpatient (CLI) | payer MEDICARE ==
[2020-10-24 09:53] LABS: Albumin 4.1 g/dL (3.5-5.0); Bilirubin, Delta 0.1 mg/dL (0.0-0.2); Bilirubin,Unconjugated 0.3 mg/dL (0.0-1.1); Total Bilirubin 0.4 mg/dL (0.2-1.3); Total Protein 6.1 g/dL (6.3-8.2)
--- NOTE | 2020-10-24 10:50 | US ---
EXAMINATION TYPE: US liver DATE OF EXAM: 10/24/2020 COMPARISON: CT February 11, 2019. PET/CT July 09, 2020. CLINICAL HISTORY: R74.01 Elevation of levels of liver. Patient stated has elevated AST, HX of chemoth erapy for Follicular cell lymphoma; gallbladder removed. EXAM MEASUREMENTS: Liver Length: 12.4 cm Gallbladder Wall: surgically removed CBD: 0.7 cm Right Kidney: 9.3 x 3.8 x 4.3 cm Pancreas: wnl Liver: no masses are seen Gallbladder: surgically absent Evidence for sonographic Pena's sign: no CBD: size wnl for post laparoscopy cholecystectomy Right Kidney: very small hyperechoic focus is seen mid cortex suggestive of small renal calcificatio n with noted posterior shadowing. Visualized liver is slightly heterogeneous hyperechoic appearance without mass or ductal dilatation. Gallbladder surgically absent. Possible punctate nonobstructing right renal calculus. No right-sided Hydronephrosis. IMPRESSION: Mild diffuse fatty infiltration of the liver redemonstrated.
== END | disposition home or self-care (01) ==
LOC: RADUSWWP 08:46
PROVIDERS: ATTEND Internal Medicine
DX: R74.01 Elevation of levels of liver transaminase levels (principal); K76.0 Fatty (change of) liver, not elsewhere classified
CPT/HCPCS: 76705; 80076; 87517

== ENCOUNTER → 2021-03-27 | Outpatient (CLI) | payer MEDICARE ==
--- NOTE | 2021-03-27 11:53 | MM ---
Reason for exam: additional evaluation requested from prior study. Last mammogram was performed 3 years and 2 months ago. History: Patient is postmenopausal, has history of high-risk lesion on a previous biopsy at age 56, and history of other cancer. Family history of premenopausal breast cancer in maternal cousin at age 30 and breast cancer in maternal cousin. High risk right mammotome panel of the right breast, January 27, 2007. Physical Findings: Nurse did not find any significant physical abnormalities on exam. MG 3D Diag Mammo W/Cad SWATHI Bilateral CC and MLO view(s) were taken. Prior study comparison: January 10, 2018, bilateral MG 3d screening mammo w/cad. August 16, 2016, bilateral MG 3d diag mammo w/cad SWATHI. The breast tissue is heterogeneously dense. This may lower the sensitivity of mammography. Benign appearing bilateral calcifications. Previous mammotome biopsy in the right breast. These results were verbally communicated with the patient and result sheet given to the patient on 03/27/21. ASSESSMENT: Benign, BI-RAD 2 RECOMMENDATION: Routine screening mammogram of both breasts in 1 year.
== END | disposition home or self-care (01) ==
LOC: RADMAMWWP 10:20
PROVIDERS: ATTEND Family Medicine
DX: R92.2 Inconclusive mammogram (principal); R92.1 Mammographic calcification found on diagnostic imaging of breast
CPT/HCPCS: 77066; G0279; 77062

== ENCOUNTER → 2023-02-04 | Outpatient (CLI) | payer MEDICARE, OTHER ==
--- NOTE | 2023-02-04 08:16 | US ---
EXAMINATION TYPE: US duplex aorta DATE OF EXAM: 02/04/2023 COMPARISON: CT 2019 CLINICAL HISTORY: R42. Abdomen pain TECHNIQUE: Multiple sonographic images of the abdominal aorta are obtained. FINDINGS: EXAM MEASUREMENTS: Abdominal Aorta: Proximal: 2.3 x 2.4cm Mid: 1.8 x 2.0cm Distal: 1.6 x 1.4cm Right Iliac: 0.8 x 0.8cm Left Iliac: 1.0 x 0.9cm Aorta successfully visualized through the bifurcation IMPRESSION: No ultrasound evidence for greater than 3.0 cm AAA.
--- NOTE | 2023-02-04 08:17 | US ---
EXAMINATION TYPE: US carotid duplex BILAT DATE OF EXAM: 02/04/2023 COMPARISON: NONE CLINICAL HISTORY: R42. Neck pain TECHNIQUE: Carotid duplex ultrasound examination. Indirect Doppler criteria was utilized. FINDINGS: EXAM MEASUREMENTS: RIGHT: Peak Systolic Velocity (PSV) cm/sec ----- Right CCA: 85.3 ----- Right ICA: 89.7 ----- Right ECA: 127.0 ICA/CCA ratio: 1.1 RIGHT: End Diastole cm/sec ----- Right CCA: 21.5 ----- Right ICA: 29.2 ----- Right ECA: 13.9 LEFT: Peak Systolic Velocity (PSV) cm/sec ----- Left CCA: 77.6 ----- Left ICA: 103.0 ----- Left ECA: 109.5 ICA/CCA ratio: 1.3 LEFT: End Diastole cm/sec ----- Left CCA: 21.5 ----- Left ICA: 31.8 ----- Left ECA: 21.5 VERTEBRALS (direction of flow): Right Vertebral: Antegrade Left Vertebral: Antegrade Rhythm: Normal [id number] peripheral plaque bilateral carotid bulb level left greater than right. IMPRESSION: No hemodynamically significant stenosis in either internal carotid artery. Criteria for Assigning % of Stenosis / Diameter reduction (Estimation based on the indirect measurements of the internal carotid artery velocities (ICA PSV). 1. Normal (no stenosis)=ICA PSV < 125 cm/s: ratio < 2.0: ICA EDV<40 cm/s. 2. Less than 50% stenosis=ICA PSV < 125 cm/s: ratio < 2.0: ICA EDV<40 cm/s. 3. 50 to 69% stenosis=ICA PSV of 125 to 230 cm/s: ration 2.0 ? 4.0: ICA EDV 40-100 cm/s. 4. Greater than 70% stenosis to near occlusion= ICA PSV > 230 cm/s: ratio > 4.0: ICA EDV > 100 cm/s. 5. Near occlusion= ICA PSV velocities may be low or undetectable: variable ratio and ICA EDV. 6. Total occlusion=unable to detect flow.
--- NOTE | 2023-02-04 12:35 | CA ---
Transthoracic Echo Report Name: Radha Cho Age: 72 Gender: F : 1950 Exam Date: 02/04/2023 08:33 Exam Location: [facility] Ht (in): 64 Wt (lb): 142 Ordering Physician: Syd Jeronimo MD Attending/Referring Phys: Palmer Borges PAC Host Coordinator Kala Calderon RDCS Procedure CPT: Indications: R42 Cardiac Hx: fam Hx Technical Quality: Good Contrast 1: Total Dose (mL): Contrast 2: Total Dose (mL): MEASUREMENTS (Male / Female) Normal Values 2D ECHO LV Diastolic Diameter PLAX 4.0 cm 4.2 - 5.9 / 3.9 - 5.3 cm LV Systolic Diameter PLAX 2.6 cm IVS Diastolic Thickness 1.1 cm 0.6 - 1.0 / 0.6 - 0.9 cm LVPW Diastolic Thickness 1.0 cm 0.6 - 1.0 / 0.6 - 0.9 cm LV Relative Wall Thickness 0.5 RV Internal Dim ED PLAX 3.0 cm LA Systolic Diameter LX 3.3 cm 3.0 - 4.0 / 2.7 - 3.8 cm LV Diastolic Volume MOD 4C 39.1 cm??? LV Systolic Volume MOD 4C 17.1 cm??? LV Ejection Fraction MOD 4C 56.2 % LV Diastolic Length 4C 7.5 cm LV Systolic Length 4C 6.4 cm LV Diastolic Volume MOD 2C 53.4 cm??? LV Systolic Volume MOD 2C 24.8 cm??? LV Ejection Fraction MOD 2C 53.5 % LV Diastolic Length 2C 6.7 cm LV Systolic Length 2C 5.5 cm LA Volume 30.0 cm??? 18 - 58 / 22 - 52 cm??? M-MODE Aortic Root Diameter MM 2.5 cm MV E Point Septal Separation 0.3 cm AV Cusp Separation MM 1.7 cm DOPPLER AV Peak Velocity 148.2 cm/s AV Peak Gradient 8.8 mmHg MV Area PHT 3.0 cm??? Mitral E Point Velocity 65.9 cm/s Mitral A Point Velocity 90.7 cm/s Mitral E to A Ratio 0.7 MV Deceleration Time 249.5 ms MV E' Velocity 5.8 cm/s Mitral E to MV E' Ratio 11.3 TR Peak Velocity 249.0 cm/s TR Peak Gradient 24.8 mmHg Right Ventricular Systolic Press 29.6 mmHg FINDINGS Left Ventricle Left ventricular ejection fraction is estimated at 55-60 %. Left ventricular cavity size normal. Mildly increased septal wall thickness. Mildly increased posterior wall thickness. Right Ventricle Normal right ventricular size and function. Right ventricular systolic pressure within normal limits. Right Atrium Normal right atrial size. Left Atrium Normal left atrial size. Mitral Valve Structurally normal mitral valve. Trace mitral regurgitation. Aortic Valve Trileaflet aortic valve. No aortic valve stenosis or regurgitation. Tricuspid Valve Structurally normal tricuspid valve. Mild tricuspid regurgitation. Pulmonic Valve Structurally normal pulmonic valve. No pulmonic regurgitation. Pericardium Normal pericardium. No pericardial effusion. Aorta Normal size aortic root and proximal ascending aorta. CONCLUSIONS 1. Normal left ventricle size and systolic function 2. Trace mitral with mild tricuspid regurgitation Previewed by: Dr. Jaqui Mcdonald MD (Electronically Signed) Final Date: 04 February 2023 12:34
== END | disposition home or self-care (01) ==
LOC: RADUSWWP 06:41
PROVIDERS: ATTEND Family Medicine
DX: R42 Dizziness and giddiness (principal)
CPT/HCPCS: 93306; 93880; 93979

== ENCOUNTER → 2023-03-25 | Outpatient (CLI) | payer MEDICARE, OTHER ==
[2023-03-25 13:56] LABS: African American GFR (CKD) >90 (>60 ml/min/1.73 sqM); Blood Urea Nitrogen 14 mg/dL (7-17); Non-African American GFR(CKD) 87 (>60 ml/min/1.73 sqM)
--- NOTE | 2023-03-25 21:17 | CT ---
EXAMINATION TYPE: CT abdomen pelvis w con DATE OF EXAM: 03/25/2023 COMPARISON: 07/09/2020 PET/CT INDICATION: RLQ abdominal pain and discomfort. DLP: 997 mGycm, Automated exposure control for dose reduction was used. CONTRAST: 100cc mL of Isovue 300. Study performed with Oral Contrast TECHNIQUE: Axial images were obtained from above the diaphragm to the pubic rami in the axial plane a t 5 mm thick sections. Reconstructed images are reviewed on the computer in the coronal plane. FINDINGS: Limited CT sections are obtained the lung bases. The lung bases are clear. CT ABDOMEN: There is a small hiatal hernia present. Liver: Normal Spleen: Normal Pancreas: Normal Adrenal glands: The adrenal glands are normal. Gallbladder: Surgically absent Kidneys: No masses are evident. No hydronephrosis is present. No cysts are present. Delayed images were obtained through the kidneys, which remain unremarkable. Aorta: Vascular calcification is within the aorta. Inferior vena cava: Normal. CT PELVIS: Loops of bowel within the abdomen and pelvis are normal. There are loops of bowel which are incom pletely distended or lack oral contrast limiting their evaluation. Appendix: The appendix is somewhat prominent measuring 1.1 cm. However, no inflammatory changes are a djacent. No thick wall is evident. This appears air filled. Early appendicitis could be considered. T his may be the patient's normal. This is thicker than the comparison 2019. Clinical management is rec ommended. Urinary bladder: Normal. Genitourinary structures: Uterus and adnexa appear normal. Osseous structures: No suspicious lytic or sclerotic lesions. Degenerative disc changes present L5-S1 . Facet changes are within the lower lumbar spine. IMPRESSIONS: 1. The appendix is somewhat prominent without adjacent inflammatory changes. Early appendicitis is n ot excluded. Clinical management of any suspect appendicitis is recommended.
--- NOTE | 2023-03-26 15:36 | MM ---
Reason for Exam: Screening (asymptomatic). Last mammogram was performed 2 year(s) and 0 month(s) ago. Patient History: Menarche at age 12. First Full-Term at age 20. Postmenopausal. Previous chemotherapy at age 65. 01/27/2007, High risk Core Biopsy on the right side. Maternal cousin (phuong burt) had breast cancer, age 30. Maternal cousin (dae) had breast cancer, age 45. Risk Values: Madisyn 5 year model risk: 1.9%. NCI Lifetime model risk: 4.8%. Prior Study Comparison: 08/16/2016 Bilateral Diagnostic Mammogram, [facility]. 01/10/2018 Bilateral Screening Mammogram, [facility]. 03/27/2021 Bilateral Diagnostic Mammogram, [facility]. Tissue Density: The breast tissue is heterogeneously dense. This may lower the sensitivity of mammography. Findings: Analyzed By CAD. The pattern appears stable. Biopsy clip is within the right breast. Couple of benign calcifications are within the right breast. No suspicious groups of microcalcifications, spiculated or lobular masses, architectural distortion or other secondary signs of malignancy are mammographically apparent. Overall Assessment: Benign, BI-RAD 2 Management: Screening Mammogram of both breasts in 1 year. A negative mammogram report should not preclude additional follow up of suspicious palpable abnormalities. Patient should continue monthly self breast exam. A clinical breast exam by your physician is recommended on an annual basis and results should be correlated with mammographic findings. Electronically signed and approved by: Fadi Deal D.O. Radiologis
== END | disposition home or self-care (01) ==
LOC: RADCTMAIN 12:52
DX: Z12.31 Encounter for screening mammogram for malignant neoplasm of breast (principal); C82.98 Follicular lymphoma, unspecified, lymph nodes of multiple sites; R10.11 Right upper quadrant pain; Z78.0 Asymptomatic menopausal state; Z80.3 Family history of malignant neoplasm of breast
CPT/HCPCS: 82565; 84520; 77067; 77063; 74177; 36415; Q9967

== ENCOUNTER 2023-07-14 11:00 | Emergency (ER) | payer MEDICARE, OTHER ==
[2023-07-14] MEDS ORDERED: SODIUM CHLORIDE 0.9% 500 ML 500 ML IV STA (11:51)
--- NOTE | 2023-07-14 11:58 | ED ---
General Adult HPI - General Chief complaint: Shortness of Breath Stated complaint: ANNALEE,Abd/Neck pain Time Seen by Provider: 07/14/23 11:28 Source: patient, RN notes reviewed, old records reviewed Mode of arrival: ambulatory Limitations: no limitations - History of Present Illness Initial comments: Nontoxic appearing 72-year-old female presents alert and oriented 4 with multiple complaints. Patient states that she feels short of breath and shaky with generalized weakness and occasional dizziness ongoing for 1 week. Denies any fevers but does state she has some mucus production and nasal congestion. She has neck pain and feels as though her adenoids are swollen since yesterday. She also has watery diarrhea 7-8 times a day with some mucus in stool this week. Patient states she had an echocardiogram in January and has never received the results and she had an abdominal CAT scan in March for her abdominal discomfort and never got the results. She is being seen by a doctor out of [place] now but was seeing Palmer a PA who has been monitoring these symptoms for her however her director investment banking suggested she actually see a physician. She states that she has not seen a consulting utility forester or a electrical tester in the past. -: week(s) (1) Location: neck Radiation: non-radiation Severity scale (1-10): 8 Consistency: constant Improves with: none Associated Symptoms: cough, malaise, shortness of breath, other (diarrhea) - Related Data Home Medications Medication Instructions Recorded Confirmed Ibuprofen [Advil] 220 - 440 mg PO Q6H PRN 04/06/19 04/06/19 clonazePAM [KlonoPIN] 0.5 mg PO BID 04/06/19 04/09/19 clonazePAM [KlonoPIN] 0.5 tab PO DAILY PRN 04/06/19 04/09/19 Allergies Allergy/AdvReac Type Severity Reaction Status Date / Time allopurinol Allergy Anaphylaxis Verified 07/14/23 11:15 ampicillin Allergy Rash/Hives Verified 07/14/23 11:15 avocado Allergy Nausea & Verified 07/14/23 11:15 Vomiting doxycycline Allergy Rash/Hives Verified 07/14/23 11:15 Iodinated Contrast Media Allergy Swelling Verified 07/14/23 11:15 [Iodinated Contrast- Oral and IV Dye] metronidazole [From Flagyl] Allergy Rash/Hives Verified 07/14/23 11:15 rituximab [From Rituxan] Allergy Diarrhea Verified 07/14/23 11:15 Sulfa (Sulfonamide Allergy Unknown Verified 07/14/23 11:15 Antibiotics) Review of Systems ROS Statement: Those systems with pertinent positive or pertinent negative responses have been documented in the HPI. ROS Other: All systems not noted in ROS Statement are negative. Past Medical History Past Medical History: Cancer, COPD, GERD/Reflux, Thyroid Disorder Additional Past Medical History / Comment(s): CURRENT: ABD PAIN, DIARRHEA. LIVER DAMAGE (PER PATIENT SHE BELIEVES THAT IT WAS RESULT OF ALLUPURINOL, WAS HO SPITILIZED). Non hodgkins lymphoma IN 2011. Hiatal hernia. Went into remission then had reoccurance few months ago-completed 30 tx (first round). Other past hx includes: mono in high school, hepatitis B. History of Any Multi-Drug Resistant Organisms: None Reported Past Surgical History: Adenoidectomy, Cholecystectomy, Tonsillectomy Additional Past Surgical History / Comment(s): rt cervical bx, multiple lymph nodes removed, colonoscopy, rt breast biopsy -neg Past Anesthesia/Blood Transfusion Reactions: No Reported Reaction Past Psychological History: Anxiety, Depression Past Alcohol Use History: None Reported Past Drug Use History: None Reported - Past Family History Mother Family Medical History: Coronary Artery Disease (CAD), Myocardial Infarction (MA) Additional Family Medical History / Comment(s): valve replacment(pig valve), pacemaker Father Family Medical History: Diabetes Mellitus, Myocardial Infarction (MA) Additional Family Medical History / Comment(s): pacemaker General Exam Limitations: no limitations General appearance: alert, in no apparent distress, anxious Head exam: Present: atraumatic, normocephalic Eye exam: Present: normal appearance. Absent: scleral icterus, conjunctival injection, periorbital swelling ENT exam: Present: mucous membranes moist Neck exam: Present: tenderness, full ROM. Absent: meningismus, lymphadenopathy, thyromegaly Respiratory exam: Present: normal lung sounds bilaterally. Absent: respiratory distress, wheezes, rales, rhonchi, stridor, accessory muscle use Cardiovascular Exam: Present: tachycardia GI/Abdominal exam: Present: soft, normal bowel sounds. Absent: distended, tenderness, guarding, rebound, rigid, mass, hernia Extremities exam: Present: full ROM, normal capillary refill. Absent: tenderness, pedal edema Back exam: Present: full ROM. Absent: tenderness, CVA tenderness (R), CVA tenderness (L), paraspinal tenderness, vertebral tenderness, rash noted Neurological exam: Present: alert, oriented X3 Psychiatric exam: Present: anxious Skin exam: Present: warm, dry, normal color. Absent: cyanosis, diaphoretic, petechiae, pallor Course Vital Signs 07/14/23 07/14/23 07/14/23 11:11 12:30 12:32 Temperature 98.3 F Pulse Rate 105 H 67 Respiratory 18 20 17 Rate Blood Pressure 160/76 133/85 O2 Sat by Pulse 97 98 Oximetry 07/14/23 13:50 Temperature 98.0 F Pulse Rate 77 Respiratory 18 Rate Blood Pressure 140/82 O2 Sat by Pulse 97 Oximetry EKG Findings - EKG Results: EKG: interpreted by MARYANN (EKG shows sinus rhythm with a ventricular rate of 73, HI interval 0.112, QRS 0.77, QTC 0.335) Medical Decision Making - Medical Decision Making Was pt. sent in by a medical professional or institution (, PA, NITROGLYCERIN NITRATOR OPERATOR BATCH, urgent care, hospital, or snf...) When possible be specific @ -No Did you speak to anyone other than the patient for history (EMS, parent, family, police, friend...)? What history was obtained from this source @ -No Did you review nursing and triage notes (agree or disagree)? Why? @ -I reviewed and agree with nursing and triage notes Were old charts reviewed (outside hosp., previous admission, EMS record, old EKG, old radiological studies, urgent care reports/EKG's, snf records)? Report findings @ -Yes Previous records were reviewed including Echo performed on 02/04/2023 shows normal left ventricular size and systolic function. Trace mitral with mild tricuspid regurgitation. CT reviewed 03/25/2023 showed appendix was somewhat prominent without adjacent inflammatory changes. Early appendicitis is not excluded. Clinical management of any suspect appendicitis as recommended. Differential Diagnosis (chest pain, altered mental status, abdominal pain women, abdominal pain men, vaginal bleeding, weakness, fever, dyspnea, syncope, headache, dizziness, GI bleed, back pain, seizure, CVA, palpatations, mental health, musculoskeletal)? @ -Differential Weakness: Hypoglycemia, shock, sepsis, hyponatremia, anemia, infection, MA, ETOH, adverse medicine reaction, overdose, stroke, this is not meant to be an all-inclusive list. Differential Dyspnea: Coronary syndrome, arrhythmia, tamponade, asthma, COPD, pulmonary embolism, pneumonia, pneumothorax, pulmonary effusion, anaphylaxis, diabetic ketoacidosis, flailed chest, pulmonary contusion, diaphragmatic rupture, anemia, neuromuscular, this is not meant to be an all-inclusive list. EKG interpreted by me (3pts min.). @ -yes EKG interpreted by me shows sinus rhythm with a ventricular rate of 73, HI interval 0.112, QRS 0.77, QTC 0.335 no concerning changes, compared to old 04/02/2017 HI interval was 0.110 X-rays interpreted by me (1pt min.). @ -yes Chest x-ray interpreted by me shows no evidence of focal consolidation. Trachea is midline. Heart silhouette within normal size. Radiologist interpretation no evidence for acute pulmonary disease. CT interpreted by me (1pt min.). @ -None done U/S interpreted by me (1pt. min.). @ -None done What testing was considered but not performed or refused? (CT, X-rays, U/S, labs)? Why? @ -None What meds were considered but not given or refused? Why? @ -None Did you discuss the management of the patient with other professionals (professionals i.e. , PA, NITROGLYCERIN NITRATOR OPERATOR BATCH, lab, RT, psych nurse, social services director, box hinge and lock attacher, teacher, president and chief executive officer, rn case manager hospice)? Give summary @ -No Was smoking cessation discussed for >3mins.? @ -No Was critical care preformed (if so, how long)? @ -No Were there social determinants of health that impacted care today? How? (Homelessness, low income, unemployed, alcoholism, drug addiction, transportation, low edu. Level, literacy, decrease access to med. care, senior living, rehab)? @ -No Was there de-escalation of care discussed even if they declined (Discuss DNR or withdrawal of care, Hospice)? DNR status @ -No What co-morbidities impacted this encounter? (DM, HTN, Smoking, COPD, CAD, Cancer, CVA, ARF, Chemo, Hep., AIDS, mental health diagnosis, sleep apnea, morbid obesity)? @ -history of non-Hodgkin's lymphoma, COPD, GERD, anxiety, depression, hypothyroid. Surgical history of cholecystectomy, adenoidectomy, tonsillectomy Nontoxic appearing 72-year-old female presents alert and oriented 4 with multiple complaints. Patient states that she feels short of breath and shaky with generalized weakness and occasional dizziness ongoing for 1 week. Denies any fevers but does state she has some mucus production and nasal congestion. She has neck pain and feels as though her adenoids are swollen since yesterday. She also has watery diarrhea 7-8 times a day with some mucus in stool this week. Patient states she had an echocardiogram in January and has never received the results and she had an abdominal CAT scan in March for her abdominal discomfort and never got the results. She is being seen by a doctor out of [place] now but was seeing Palmer DEVLIN who has been monitoring these symptoms for her however her director investment banking suggested she actually see a physician. She has been having many of these issues for several months. She states that she has not seen a consulting utility forester, director biomedical engineering or a electrical tester in the past. Today no abnormal findings on physical exam. Lung sounds are clear to auscultation. Vital signs are stable. Abdomen is soft. Ambulatory with steady gait. EKG interpreted by me shows sinus rhythm with a ventricular rate of 73, HI interval 0.112, QRS 0.77, QTC 0.335 no concerning changes, compared to old 04/02/2017 HI interval was 0.110 Chest x-ray interpreted by me shows no evidence of focal consolidation. Trachea is midline. Heart silhouette within normal size. Radiologist interpretation no evidence for acute pulmonary disease. Labs show no evidence of leukocytosis. Hemoglobin and hematocrit are stable. D-dimer is negative at 0.19. Electrolytes are unremarkable. Troponin negative at 0.012. Influenza coronavirus and RSV swabs are negative. Vital signs are stable. No acute distress. At this time I do not have a source for the patient's multiple symptoms. She was instructed to follow-up with her primary care doctor. She states that she does have an upcoming PET scan. She is agreeable to this plan of care. She was asking for a recommendation for a consulting utility forester and Dr. Romero's name was provided. Case discussed with Dr. Coy Was patient admitted / discharged? Hospital course, mention meds given and route, prescriptions, significant lab abnormalities, going to OR and other pertinent info. @ -Discharged Undiagnosed new problem with uncertain prognosis? @ -No Drug Therapy requiring intensive monitoring for toxicity (Heparin, Nitro, Insulin, Cardizem)? @ -No Were any procedures done? @ -No Diagnosis/symptom? @ -Weakness, shortness of breath, dizziness Acute, or Chronic, or Acute on Chronic? @ -Acute on chronic Uncomplicated (without systemic symptoms) or Complicated (systemic symptoms)? @ -Uncomplicated Side effects of treatment? @ -No Exacerbation, Progression, or Severe Exacerbation? @ -No Poses a threat to life or bodily function? How? (Chest pain, USA, MA, pneumonia, PE, COPD, DKA, ARF, appy, cholecystitis, CVA, Diverticulitis, Homicidal, Suicidal, threat to staff... and all critical care pts) @ -No - Lab Data Result diagrams: 07/14/23 12:08 07/14/23 12:08 Lab Results 07/14/23 07/14/23 07/14/23 Range/Units 12:08 12:08 12:08 WBC 6.3 (3.8-10.6) k/uL RBC 4.99 (3.80-5.40) m/uL Hgb 15.5 (11.4-16.0) gm/dL Hct 47.2 H (34.0-46.0) % MCV 94.6 (80.0-100.0) fL MCH 31.1 (25.0-35.0) pg MCHC 32.9 (31.0-37.0) g/dL RDW 13.1 (11.5-15.5) % Plt Count 176 (150-450) k/uL MPV 7.7 Neutrophils % 73 % Lymphocytes % 18 % Monocytes % 5 % Eosinophils % 3 % Basophils % 0 % Neutrophils # 4.6 (1.3-7.7) k/uL Lymphocytes # 1.1 (1.0-4.8) k/uL Monocytes # 0.3 (0-1.0) k/uL Eosinophils # 0.2 (0-0.7) k/uL Basophils # 0.0 (0-0.2) k/uL PT 9.7 (9.0-12.0) sec INR 0.9 (<1.2) APTT 22.8 (22.0-30.0) sec D-Dimer 0.19 (<0.60) mg/L FEU Sodium 135 L (137-145) mmol/L Potassium 4.5 (3.5-5.1) mmol/L Chloride 100 (98-107) mmol/L Carbon Dioxide 30 (22-30) mmol/L Anion Gap 5 mmol/L BUN 17 (7-17) mg/dL Creatinine 0.76 (0.52-1.04) mg/dL Est GFR (CKD-EPI)AfAm >90 (>60 ml/min/1.73 sqM) Est GFR (CKD-EPI)NonAf 79 (>60 ml/min/1.73 sqM) Glucose 98 (74-99) mg/dL Plasma Lactic Acid Dinesh (0.7-2.0) mmol/L Calcium 9.0 (8.4-10.2) mg/dL Magnesium 2.3 (1.6-2.3) mg/dL Total Bilirubin 0.5 (0.2-1.3) mg/dL AST 24 (14-36) U/L ALT 20 (4-34) U/L Alkaline Phosphatase 70 (38-126) U/L Troponin I (0.000-0.034) ng/mL Total Protein 6.3 (6.3-8.2) g/dL Albumin 4.1 (3.5-5.0) g/dL Influenza Type A (PCR) (Not Detectd) Influenza Type B (PCR) (Not Detectd) RSV (PCR) (Not Detectd) SARS-CoV-2 (PCR) (Not Detectd) 07/14/23 07/14/23 07/14/23 Range/Units 12:08 12:08 12:08 WBC (3.8-10.6) k/uL RBC (3.80-5.40) m/uL Hgb (11.4-16.0) gm/dL Hct (34.0-46.0) % MCV (80.0-100.0) fL MCH (25.0-35.0) pg MCHC (31.0-37.0) g/dL RDW (11.5-15.5) % Plt Count (150-450) k/uL MPV Neutrophils % % Lymphocytes % % Monocytes % % Eosinophils % % Basophils % % Neutrophils # (1.3-7.7) k/uL Lymphocytes # (1.0-4.8) k/uL Monocytes # (0-1.0) k/uL Eosinophils # (0-0.7) k/uL Basophils # (0-0.2) k/uL PT (9.0-12.0) sec INR (<1.2) APTT (22.0-30.0) sec D-Dimer (<0.60) mg/L FEU Sodium (137-145) mmol/L Potassium (3.5-5.1) mmol/L Chloride (98-107) mmol/L Carbon Dioxide (22-30) mmol/L Anion Gap mmol/L BUN (7-17) mg/dL Creatinine (0.52-1.04) mg/dL Est GFR (CKD-EPI)AfAm (>60 ml/min/1.73 sqM) Est GFR (CKD-EPI)NonAf (>60 ml/min/1.73 sqM) Glucose (74-99) mg/dL Plasma Lactic Acid Dinesh 1.2 (0.7-2.0) mmol/L Calcium (8.4-10.2) mg/dL Magnesium (1.6-2.3) mg/dL Total Bilirubin (0.2-1.3) mg/dL AST (14-36) U/L ALT (4-34) U/L Alkaline Phosphatase (38-126) U/L Troponin I <0.012 (0.000-0.034) ng/mL Total Protein (6.3-8.2) g/dL Albumin (3.5-5.0) g/dL Influenza Type A (PCR) Not Detected (Not Detectd) Influenza Type B (PCR) Not Detected (Not Detectd) RSV (PCR) Not Detected (Not Detectd) SARS-CoV-2 (PCR) Not Detected (Not Detectd) Disposition Clinical Impression: Shortness of breath, Weakness, Abdominal pain Disposition: HOME SELF-CARE Condition: Good Instructions (If sedation given, give patient instructions): Weakness (ED), Abdominal Pain (ED), Shortness of Breath (ED) Additional Instructions: Follow-up with your primary care doctor for continuation of care. You can contact a consulting utility forester if you want to establish with one Dr Romero Return to the emergency room with any new or concerning symptoms. Is patient prescribed a controlled substance at d/c from ED?: No Referrals: Nonstaff,Physician [Primary Care Provider] - 1-2 days Kaleb Romero MD [STAFF PHYSICIAN] - 1-2 days Forms: PH Area PCPs Time of Disposition: 13:21
[2023-07-14 12:27] LABS: Basophils % (A) 0 %; Eosinophils # (A) 0.2 k/uL (0-0.7); Eosinophils % (A) 3 %; HCT 47.2 % (34.0-46.0); HGB 15.5 gm/dL (11.4-16.0); Lymphocytes # (A) 1.1 k/uL (1.0-4.8); Lymphocytes % (A) 18 %; MCH 31.1 pg (25.0-35.0); MCHC 32.9 g/dL (31.0-37.0); MCV 94.6 fL (80.0-100.0); Mean Platelet Volume 7.7; Monocytes # (A) 0.3 k/uL (0-1.0); Monocytes % (A) 5 %; Neutrophils # (A) 4.6 k/uL (1.3-7.7); Neutrophils % (A) 73 %; Platelet Count 176 k/uL (150-450); RBC 4.99 m/uL (3.80-5.40); RDW 13.1 % (11.5-15.5); WBC 6.3 k/uL (3.8-10.6)
--- NOTE | 2023-07-14 12:27 | XR ---
EXAMINATION TYPE: XR chest 2V DATE OF EXAM: 07/14/2023 COMPARISON: 01/24/2016 HISTORY: Shortness of breath TECHNIQUE: Frontal and lateral views of the chest are obtained. FINDINGS: Scattered senescent parenchymal changes noted. Hyperinflation compatible with COPD. No evidence for infiltrate. No evidence for atelectasis. Heart size is stable. Mediastinal structures are stable and grossly unremarkable. No evidence for hilar prominence. Degenerative changes dorsal spine. IMPRESSION: 1. No evidence for acute pulmonary disease.
[2023-07-14 12:39] LABS: ALT 20 U/L (4-34); AST 24 U/L (14-36); African American GFR (CKD) >90 (>60 ml/min/1.73 sqM); Albumin 4.1 g/dL (3.5-5.0); Alkaline Phosphatase 70 U/L (38-126); Anion Gap 5 mmol/L; Blood Urea Nitrogen 17 mg/dL (7-17); Carbon Dioxide 30 mmol/L (22-30); Chloride 100 mmol/L (98-107); Glucose 98 mg/dL (74-99); Magnesium 2.3 mg/dL (1.6-2.3); Non-African American GFR(CKD) 79 (>60 ml/min/1.73 sqM); Potassium 4.5 mmol/L (3.5-5.1); Sodium 135 mmol/L (137-145); Total Bilirubin 0.5 mg/dL (0.2-1.3); Total Protein 6.3 g/dL (6.3-8.2)
[2023-07-14 12:45] LABS: INR 0.9 (<1.2); Partial Thromboplastin Time 22.8 sec (22.0-30.0); Prothrombin Time 9.7 sec (9.0-12.0)
[2023-07-14 13:51] VITALS: BP 140/82; PULSE 77; RESP 18; TEMP 98
== END 2023-07-14 13:59 | disposition home or self-care (01) ==
LOC: EC 11:00
DX: R06.02 Shortness of breath (principal); R10.9 Unspecified abdominal pain; R53.1 Weakness; J44.9 Chronic obstructive pulmonary disease, unspecified; Z79.899 Other long term (current) drug therapy; Z20.822 Contact with and (suspected) exposure to COVID-19; Z88.2 Allergy status to sulfonamides; Z88.8 Allergy status to other drugs, medicaments and biological substances; Z88.0 Allergy status to penicillin; Z90.49 Acquired absence of other specified parts of digestive tract
CPT/HCPCS: 36415; 71046; 80053; 83605; 83735; 84484; 85025; 85379; 85610; 85730; 87636; 93005; 96360; 99285

== ENCOUNTER → 2023-07-26 | Outpatient (CLI) | payer MEDICARE, OTHER ==
--- NOTE | 2023-07-26 12:51 | PE ---
EXAMINATION TYPE: PET CT fusion skull to thigh DATE OF EXAM: 07/26/2023 CLINICAL INDICATION:Female, 72 years old with history of C82.98; TECHNIQUE: Following the intravenous administration of 9.98 mCi of F-18 FDG, whole body images are performed from the skull base to the midthigh. Images are reviewed on the computer in the coronal, a xial, and sagittal planes. Reconstructed rotating images are created on independent workstation and reviewed on the computer. A non-contrast CT is performed in conjunction with the PET scan. Glucose level 99 mg/dL CT DLP: 298.61 mGycm, Automated exposure control for dose reduction was used. COMPARISON: CT 04/06/2023, PET/CT 07/09/2020, FINDINGS: Mediastinal SUV mean is 1.7. Hepatic parenchyma SUV mean is 2.8. SKULL BASE AND NECK: No suspicious radiotracer activity. CHEST, MEDIASTINUM, AND HILAR REGION: No suspicious radiotracer activity. Axillary lymph nodes are no t enlarged and do not demonstrate increased metabolic activity. ABDOMEN AND PELVIS: No suspicious radiotracer activity. Lymph nodes in the retroperitoneum are nonenl arged and do not demonstrate increased metabolic activity. MUSCULOSKELETAL STRUCTURES: No suspicious radiotracer activity. OTHER CT: Atherosclerosis of the carotid bifurcations. Scattered atherosclerosis throughout the arter ial vasculature. Moderate coronary artery calcifications. The gallbladder surgically absent. Scattere d colonic diverticula. IMPRESSION: No suspicious radiotracer activity. No evidence for lymphadenopathy or hypermetabolic lesions. No brandyn dence for recurrence.
== END | disposition home or self-care (01) ==
LOC: RADPETMAIN 09:07
PROVIDERS: ATTEND Internal Medicine
DX: C82.98 Follicular lymphoma, unspecified, lymph nodes of multiple sites (principal)
CPT/HCPCS: 78815; A9552

== ENCOUNTER → 2023-10-24 | Outpatient (CLI) | payer MEDICARE, OTHER ==
[~2023-10-24] MED LIST changes: -LACTATED RINGERS 1,000 ML IV SCH; -LIDOCAINE 1% 20 ML VIAL (10MG/ML) FOR IV START INTRADERMA PRN; +REGADENOSON 0.4 MG/5 ML SYRINGE IV PRN
--- NOTE | 2023-10-24 12:13 | CA ---
Lexiscan Nuclear Stress Test Report Name: Radha Cho Exam Date: 10/24/2023 10:13 Exam Location: [facility] Ht (in): 64 Wt (lb): 135 BSA: 1.66 Ordering Phys: Tracey Gonzalez DO Referring Phys: Tracey Gonzalez DO Technologist: Servando Fabian Age: 73 Gender: F : 1950 Procedure CPT: Indications: Chest Pain ICD-10 Codes: Patient History: CHEST PAIN, DIFFICULTY IN BREATHING, PALPITATIONS, ELEVATED CHOLESTEROL LEVELS, FAMILY HX OF HEART DISEASE, PRIOR SMOKER, COPD Medications: Meds past 24 hrs: Pretest Chest Pain: STRESS TEST Lexiscan Protocol Exercise Duration (min:sec): 01:[address] Depressions (mm): Angina Score: Garcia Score: Resting HR (bpm): 79 Peak HR (bpm): 99 Resting BP (mmHg): 151 / 94 Peak BP (mmHg): / 87 MPHR: 147 Target HR: 125 % MPHR: 67 METS: 1.0 Total Dose: Peak Dose: Atropine: Double Product: BP Response: Stress Termination: INFUSION COMPLETE Stress Symptoms: NO SYMPTOMS Stress Summary: ECG ANALYSIS Resting ECG: Stress ECG: CONCLUSIONS Nondiagnostic electrocardiogram stress testing Dr. Kaleb Romero MD (Electronically Signed) Final Date: 24 October 2023 12:12
--- NOTE | 2023-10-24 12:40 | US ---
EXAMINATION TYPE: US carotid duplex BILAT DATE OF EXAM: 10/24/2023 COMPARISON: 02/04/2023 CLINICAL INDICATION: Female, 73 years old with history of Z01.818 ENCOUNTER FOR OTHER PREPROCEDURAL E XAMINAT; Neck pain TECHNIQUE: Carotid duplex ultrasound examination. Indirect Doppler criteria was utilized. FINDINGS: EXAM MEASUREMENTS: RIGHT: Peak Systolic Velocity (PSV) cm/sec ----- Right CCA: 102.6 ----- Right ICA: 118.9 ----- Right ECA: 154.4 ICA/CCA ratio: 1.2 RIGHT: End Diastole cm/sec ----- Right CCA: 35.7 ----- Right ICA: 43.0 ----- Right ECA: 43.0 LEFT: Peak Systolic Velocity (PSV) cm/sec ----- Left CCA: 99.1 ----- Left ICA: 108.2 ----- Left ECA: 140.8 ICA/CCA ratio: 1.1 LEFT: End Diastole cm/sec ----- Left CCA: 38.3 ----- Left ICA: 47.4 ----- Left ECA: 22.3 VERTEBRALS (direction of flow): Right Vertebral: Antegrade Left Vertebral: Antegrade Rhythm: Normal BRAZING MACHINE FEEDER NOTES: Mild plaque bilateral bulbs. Elevated velocities noted in bilateral ECA's. IMPRESSION: No evidence for hemodynamically significant stenosis Criteria for Assigning % of Stenosis / Diameter reduction (Estimation based on the indirect measurements of the internal carotid artery velocities (ICA PSV). 1. Normal (no stenosis)=ICA PSV < 125 cm/s: ratio < 2.0: ICA EDV<40 cm/s. 2. Less than 50% stenosis=ICA PSV < 125 cm/s: ratio < 2.0: ICA EDV<40 cm/s. 3. 50 to 69% stenosis=ICA PSV of 125 to 230 cm/s: ration 2.0 ? 4.0: ICA EDV 40-100 cm/s. 4. Greater than 70% stenosis to near occlusion= ICA PSV > 230 cm/s: ratio > 4.0: ICA EDV > 100 cm/s. 5. Near occlusion= ICA PSV velocities may be low or undetectable: variable ratio and ICA EDV. 6. Total occlusion=unable to detect flow.
--- NOTE | 2023-10-24 13:03 | NM ---
EXAMINATION TYPE: NM stress lexiscan cardiolite DATE OF EXAM: 10/24/2023 COMPARISON: NONE CLINICAL INDICATION: Female, 73 years old with history of Atypical chest pain; TECHNIQUE: After the intravenous administration of 9.0 mCi Tc 99m Sestamibi - Cardiolite resting SPE CT images acquired 45 minutes post injection. The patient received 0.4mg Lexiscan, 24.6 mCi Tc 99m Sestamibi - Stress images obtained [address] injection FINDINGS: Review of stress and rest SPECT images demonstrates no distinct perfusion abnormality. Gated analysi s shows normal wall motion with an estimated left ventricular ejection fraction of 69 %. IMPRESSION: No scintigraphic evidence for reversible ischemia.
== END | disposition home or self-care (01) ==
LOC: RADNMMAIN 08:50
DX: Z01.818 Encounter for other preprocedural examination (principal); R07.89 Other chest pain
CPT/HCPCS: 93017; 93880; 78452; A9500; J2785

== ENCOUNTER → 2023-12-03 | Outpatient (CLI) | payer MEDICARE, OTHER | END | disposition home or self-care (01) | LOC: LABWHC1 12:24 | PROVIDERS: ATTEND Ophthalmology | DX: R51.9 Headache, unspecified (principal) | CPT/HCPCS: 36415; 85652; 86140 ==

== ENCOUNTER 2024-02-15 08:59 | Emergency (ER) | payer MEDICARE, OTHER ==
[2024-02-15 09:05] VITALS: TEMP 97.8
--- NOTE | 2024-02-15 09:22 | ED ---
Allergic Reaction HPI - General Chief complaint: Allergic Reaction Stated complaint: Allergic reaction to medication Time Seen by Provider: 02/15/24 09:04 Source: patient, RN notes reviewed Mode of arrival: ambulatory Limitations: no limitations - History of Present Illness Initial Comments: This is a 73-year-old female who presents to the emergency department for concerns of allergic reaction. Patient just started taking cefpodoxime for a respiratory infection on 02/12. She took the medication that day and the following day, and states that when she woke up this morning she noticed the rash. The rash is primarily on her chest and abdomen with some areas starting on her arms. States that it is both painful and itchy. Denies any shortness of breath. She has not taken any medication such as Benadryl. Complaint: allergic reaction - Related Data Home Medications Medication Instructions Recorded Confirmed Ibuprofen [Advil] 220 - 440 mg PO Q6H PRN 04/06/19 04/06/19 clonazePAM [KlonoPIN] 0.5 mg PO BID 04/06/19 04/09/19 clonazePAM [KlonoPIN] 0.5 tab PO DAILY PRN 04/06/19 04/09/19 Previous Rx's Medication Instructions Recorded Famotidine 40 mg PO DAILY 7 Days #7 tablet 02/15/24 diphenhydrAMINE HCL [Benadryl 25 mg PO Q4-6H PRN #30 tab 02/15/24 Allergy] predniSONE 50 mg PO DAILY 5 Days #5 tab 02/15/24 Allergies Allergy/AdvReac Type Severity Reaction Status Date / Time allopurinol Allergy Anaphylaxis Verified 02/15/24 09:03 ampicillin Allergy Rash/Hives Verified 02/15/24 09:03 avocado Allergy Nausea & Verified 02/15/24 09:03 Vomiting doxycycline Allergy Rash/Hives Verified 02/15/24 09:03 Iodinated Contrast Media Allergy Swelling Verified 02/15/24 09:03 [Iodinated Contrast- Oral and IV Dye] metronidazole [From Flagyl] Allergy Rash/Hives Verified 02/15/24 09:03 rituximab [From Rituxan] Allergy Diarrhea Verified 02/15/24 09:03 Sulfa (Sulfonamide Allergy Unknown Verified 02/15/24 09:03 Antibiotics) Review of Systems ROS Statement: Those systems with pertinent positive or pertinent negative responses have been documented in the HPI. ROS Other: All systems not noted in ROS Statement are negative. Past Medical History Past Medical History: Cancer, COPD, GERD/Reflux, Thyroid Disorder Additional Past Medical History / Comment(s): CURRENT: ABD PAIN, DIARRHEA. LIVER DAMAGE (PER PATIENT SHE BELIEVES THAT IT WAS RESULT OF ALLUPURINOL, WAS HOSPITILIZED). Non hodgkins lymphoma IN 2012. Hiatal hernia. Went into remission then had reoccurance few months ago-completed 30 tx (first round). Other past hx includes: mono in high school, hepatitis B. History of Any Multi-Drug Resistant Organisms: None Reported Past Surgical History: Adenoidectomy, Cholecystectomy, Tonsillectomy Additional Past Surgical History / Comment(s): rt cervical bx, multiple lymph nodes removed, colonoscopy, rt breast biopsy -neg Past Anesthesia/Blood Transfusion Reactions: No Reported Reaction Past Psychological History: Anxiety, Depression Smoking Status: Former smoker Past Alcohol Use History: None Reported Past Drug Use History: None Reported - Past Family History Mother Family Medical History: Coronary Artery Disease (CAD), Myocardial Infarction ([place]) Additional Family Medical History / Comment(s): valve replacment(pig valve), pacemaker Father Family Medical History: Diabetes Mellitus, Myocardial Infarction ([place]) Additional Family Medical History / Comment(s): pacemaker General Exam Limitations: no limitations General appearance: alert, in no apparent distress Head exam: Present: atraumatic, normocephalic, normal inspection Respiratory exam: Present: normal lung sounds bilaterally. Absent: respiratory distress, wheezes, rales, rhonchi, stridor Cardiovascular Exam: Present: regular rate, normal rhythm, normal heart sounds. Absent: systolic murmur, diastolic murmur, rubs, gallop, clicks Neurological exam: Present: alert, oriented X3, CN II-XII intact Psychiatric exam: Present: normal affect, normal mood Skin exam: Present: other (Erythematous rash on the chest, abdomen, and bilateral upper extremities consistent with urticaria) Course Vital Signs 02/15/24 02/15/24 02/15/24 09:01 10:42 11:31 Temperature 97.8 F Pulse Rate 89 77 79 Respiratory 20 18 18 Rate Blood Pressure 152/74 118/59 136/77 O2 Sat by Pulse 96 97 95 Oximetry Medical Decision Making - Medical Decision Making This is a 73 year old female who presents to the emergency department for a rash. Was pt. sent in by a medical professional or institution? @ -No Did you speak to anyone other than the patient for history? @ -No Did you review nursing and triage notes? @ -Yes, and I agree, it is accurate with regards to the patient's symptoms. Were old charts reviewed? @ -No Differential Diagnosis? @ -Differential Rash: Roseola, measles, Lyme disease, erythema multiforme, cellulitis, toxic shock syndrome, Axel Alex syndrome, Kawasaki disease, isai mountain spotted fever, contact dermatitis, allergic dermatitis, measles, mumps, rubella, varicella, meningococcal disease, drug reaction, coxsackievirus, This is not meant to be an all-inclusive list. EKG interpreted by me (3pts min.)? @ -Not obtained X-rays interpreted by me (1pt min.)? @ -Not obtained CT interpreted by me (1pt min.)? @ -Not obtained U/S interpreted by me (1pt. min.)? @ -Not obtained What testing was considered but not performed? (CT, X-rays, U/S, labs)? Why? @ -None What meds were considered but not given? Why? @ -None Did you discuss the management of the patient with other professionals? @ -No Did you reconcile home meds? @ -No Was smoking cessation discussed for >3mins.? @ -I discussed smoking cessation for greater than 3 minutes. The risk of smoking were discussed with the patient including but not limited to risks of cancer, stroke, coronary artery disease and COPD. Also discussed with patient were multiple methods of quitting smoking. Lastly we discussed the financial cost of smoking. Was critical care preformed (if so, how long)? @ -No Were there social determinants of health that impacted care today? How? (Homelessness, low income, unemployed, alcoholism, drug addiction, transportation, low edu. Level, literacy, decrease access to med. care, senior living, rehab)? @ -No Was there de-escalation of care discussed even if they declined? (Discuss DNR or withdrawal of care, Hospice)? @ -No What co-morbidities impacted this encounter? (DM, HTN, Smoking, COPD, CAD, Cancer, CVA, Hep., AIDS, mental health diagnosis, sleep apnea, morbid obesity)? @ -Smoking, COPD Was patient admitted / discharged? @ -Discharged. Patient given allergy cocktail consisting of IV Solu-Medrol, Benadryl, and famotidine with improvement in symptoms. She is concerned about a prior allergic reaction causing problems with her liver function and inquired about blood work. CBC and CMP ordered and found to be unremarkable. Prescription for prednisone, famotidine, and Benadryl provided with dosing instructions reviewed for additional management of suspected allergic reaction. She was also sent home with triamcinolone cream to use as a spot treatment if needed for any particularly bothersome areas. Otherwise advised follow-up with her primary care provider. Undiagnosed new problem with uncertain prognosis? @ -None Drug Therapy requiring intensive monitoring for toxicity (Heparin, Nitro, Insulin, Cardizem)? @ -None Were any procedures done? @ -None Diagnosis/symptom? @ -Allergic reaction Acute, or Chronic, or Acute on Chronic? @ -Acute Uncomplicated (without systemic symptoms) or Complicated (systemic symptoms)? @ -Uncomplicated Side effects of treatment? @ -None Exacerbation, Progression, or Severe Exacerbation] @ -Not applicable Poses a threat to life or bodily function? @ -No Return precautions reviewed in depth, the patient is instructed to return to the emergency department with any new, worsening, or concerning symptoms. Patient verbalized understanding. This case was discussed in detail with the attending ED physician, Dr. Coy. Presentation, findings, and treatment plan discussed in detail as well. - Lab Data Result diagrams: 02/15/24 10:44 02/15/24 10:44 Lab Results 02/15/24 02/15/24 02/15/24 Range/Units 10:44 10:44 11:36 WBC 5.9 (3.8-10.6) k/uL RBC 4.73 (3.80-5.40) m/uL Hgb 14.7 (11.4-16.0) gm/dL Hct 46.9 H (34.0-46.0) % MCV 99.1 (80.0-100.0) fL MCH 31.1 (25.0-35.0) pg MCHC 31.4 (31.0-37.0) g/dL RDW 12.6 (11.5-15.5) % Plt Count 190 (150-450) k/uL MPV 7.4 Neutrophils % 85 % Lymphocytes % 6 % Monocytes % 4 % Eosinophils % 4 % Basophils % 1 % Neutrophils # 5.0 (1.3-7.7) k/uL Lymphocytes # 0.3 L (1.0-4.8) k/uL Monocytes # 0.2 (0-1.0) k/uL Eosinophils # 0.2 (0-0.7) k/uL Basophils # 0.0 (0-0.2) k/uL Sodium 138 (137-145) mmol/L Potassium 4.0 (3.5-5.1) mmol/L Chloride 106 (98-107) mmol/L Carbon Dioxide 27 (22-30) mmol/L Anion Gap 5 mmol/L BUN 20 H (7-17) mg/dL Creatinine 0.77 (0.52-1.04) mg/dL Est GFR (CKD-EPI)AfAm 89 (>60 ml/min/1.73 sqM) Est GFR (CKD-EPI)NonAf 77 (>60 ml/min/1.73 sqM) Glucose 97 (74-99) mg/dL POC Glucose (mg/dL) 103 (70-110) mg/dL POC Glu Meat Counter Worker ID Corina Fall Calcium 9.0 (8.4-10.2) mg/dL Total Bilirubin 0.5 (0.2-1.3) mg/dL AST 22 (14-36) U/L ALT 24 (4-34) U/L Alkaline Phosphatase 78 (38-126) U/L Total Protein 5.9 L (6.3-8.2) g/dL Albumin 3.7 (3.5-5.0) g/dL Disposition Clinical Impression: Allergic reaction, Nicotine dependence Disposition: HOME SELF-CARE Instructions (If sedation given, give patient instructions): Urticaria (ED), Acute Rash (ED) Additional Instructions: Return to the emergency department with any new, worsening, or concerning symptoms. Take the prednisone daily for 5 days. Take the famotidine daily for 7 days. Take the Benadryl every 4-6 hours. You can apply the triamcinolone c ream provided here 3-4x daily. This can be applied anywhere aside from the face. Follow up with your primary care provider in 1-2 days. Prescriptions: diphenhydrAMINE HCL [Benadryl Allergy] 25 mg PO Q4-6H PRN #30 tab PRN Reason: Itching Famotidine 40 mg PO DAILY 7 Days #7 tablet predniSONE 50 mg PO DAILY 5 Days #5 tab Is patient prescribed a controlled substance at d/c from ED?: No Referrals: Tracey Gonzalez DO [Primary Care Provider] - 1-2 days Time of Disposition: 11:20
[2024-02-15] MEDS: methylPREDNISolone SOD SUCCI 125 MG/2 ML VIAL IV STA (09:24)
[2024-02-15] MEDS: FAMOTIDINE 20 MG/2 ML VIAL IV STA (09:25)
[2024-02-15] MEDS: diphenhydrAMINE 50 MG/ML 1 ML VIAL IVP STA (09:26)
[2024-02-15] MEDS: TRIAMCINOLONE 0.1% CREAM 80 GM TUBE TOPICAL STA (09:37)
[2024-02-15 10:53] VITALS: RESP 18
[2024-02-15 10:58] LABS: Basophils % (A) 1 %; Eosinophils # (A) 0.2 k/uL (0-0.7); Eosinophils % (A) 4 %; HCT 46.9 % (34.0-46.0); HGB 14.7 gm/dL (11.4-16.0); Lymphocytes # (A) 0.3 k/uL (1.0-4.8); Lymphocytes % (A) 6 %; MCH 31.1 pg (25.0-35.0); MCHC 31.4 g/dL (31.0-37.0); MCV 99.1 fL (80.0-100.0); Mean Platelet Volume 7.4; Monocytes # (A) 0.2 k/uL (0-1.0); Monocytes % (A) 4 %; Neutrophils % (A) 85 %; Platelet Count 190 k/uL (150-450); RBC 4.73 m/uL (3.80-5.40); RDW 12.6 % (11.5-15.5); WBC 5.9 k/uL (3.8-10.6)
[2024-02-15 11:15] LABS: ALT 24 U/L (4-34); AST 22 U/L (14-36); African American GFR (CKD) 89 (>60 ml/min/1.73 sqM); Albumin 3.7 g/dL (3.5-5.0); Alkaline Phosphatase 78 U/L (38-126); Anion Gap 5 mmol/L; Blood Urea Nitrogen 20 mg/dL (7-17); Carbon Dioxide 27 mmol/L (22-30); Chloride 106 mmol/L (98-107); Glucose 97 mg/dL (74-99); Non-African American GFR(CKD) 77 (>60 ml/min/1.73 sqM); Sodium 138 mmol/L (137-145); Total Bilirubin 0.5 mg/dL (0.2-1.3); Total Protein 5.9 g/dL (6.3-8.2)
[2024-02-15 11:39] LABS: Glucose,Whole Blood 103 mg/dL (70-110)
[2024-02-15 12:01] VITALS: BP 136/77; PULSE 79
== END 2024-02-15 11:39 | disposition home or self-care (01) ==
LOC: EC 08:59
DX: L50.0 Allergic urticaria (principal); T36.1X5A Adverse effect of cephalosporins and other beta-lactam antibiotics, initial encounter; F17.210 Nicotine dependence, cigarettes, uncomplicated; Z88.0 Allergy status to penicillin; Z88.1 Allergy status to other antibiotic agents; Z88.2 Allergy status to sulfonamides; Z88.8 Allergy status to other drugs, medicaments and biological substances; Z91.018 Allergy to other foods; Z91.041 Radiographic dye allergy status
CPT/HCPCS: 36415; 80053; 85025; 99406; 99283; 96374; 96375 ×2; J1200; J2930; J3490

== ENCOUNTER 2024-08-27 19:58 | Emergency (ER) | payer MEDICARE, OTHER ==
[2024-08-27 20:36] VITALS: TEMP 100.5
--- NOTE | 2024-08-27 21:45 | ED ---
Fever HPI - General Chief Complaint: Fever Stated Complaint: fever Source: patient, RN notes reviewed, old records reviewed Mode of arrival: ambulatory Limitations: no limitations - History of Present Illness Initial Comments: This is a 73-year-old female to the ER for evaluation of fever today. Patient is currently undergoing treatment for lung cancer, non-small cell lung cancer currently gone through radiation and chemotherapy currently on immunotherapy coming in with fever today fever that was noticed last night with shaking chills body aches and pains. Patient does have diarrhea with history of colitis MD Complaint: weakness, other (Vomiting diarrhea) -: days(s) (For fever) Context: sick contacts, recent antibiotic use, on chemotherapy, on immunosuppressant(s) Associated Symptoms: chills, rigors, myalgias Treatments Prior to Arrival: none - Related Data Home Medications Medication Instructions Recorded Confirmed clonazePAM [KlonoPIN] 0.5 mg PO BID@0900,2100 04/06/19 04/09/24 clonazePAM [KlonoPIN] 0.5 tab PO DAILY@1500 04/06/19 04/09/24 DULoxetine HCL [Cymbalta] 30 mg PO DAILY 04/09/24 04/09/24 Ondansetron Odt [Zofran Odt] 8 mg PO Q8HR PRN 04/09/24 04/09/24 Allergies Allergy/AdvReac Type Severity Reaction Status Date / Time allopurinol Allergy Anaphylaxis Verified 08/27/24 20:07 ampicillin Allergy Rash/Hives Verified 08/27/24 20:07 avocado Allergy Nausea & Verified 08/27/24 20:07 Vomiting doxycycline Allergy Rash/Hives Verified 08/27/24 20:07 Iodinated Contrast Media Allergy Swelling Verified 08/27/24 20:07 [Iodinated Contrast- Oral and IV Dye] metronidazole [From Flagyl] Allergy Rash/Hives Verified 08/27/24 20:07 Penicillins Allergy Rash/Hives Verified 08/27/24 20:07 rituximab [From Rituxan] Allergy Diarrhea Verified 08/27/24 20:07 Sulfa (Sulfonamide Allergy Unknown Verified 08/27/24 20:07 Antibiotics) Review of Systems ROS Statement: Those systems with pertinent positive or pertinent negative responses have been documented in the HPI. ROS Other: All systems not noted in ROS Statement are negative. Past Medical History Past Medical History: Cancer, COPD, GERD/Reflux, Thyroid Disorder Additional Past Medical History / Comment(s): CURRENT: ABD PAIN, DIARRHEA. LIVER DAMAGE (PER PATIENT SHE BELIEVES THAT IT WAS RESULT OF ALLUPURINOL, WAS HOSPITILIZED). Non hodgkins lymphoma IN 2012. Hiatal hernia. Went into remission then had reoccurance few months ago-completed 30 tx (first round). Other past hx includes: mono in high school, hepatitis B. 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 History of Any Multi-Drug Resistant Organisms: None Reported Past Surgical History: Adenoidectomy, Cholecystectomy, Tonsillectomy Additional Past Surgical History / Comment(s): rt cervical bx, multiple lymph nodes removed, colonoscopy, rt breast biopsy -neg Past Anesthesia/Blood Transfusion Reactions: No Reported Reaction Past Psychological History: Anxiety, Depression Smoking Status: Former smoker Past Alcohol Use History: None Reported Past Drug Use History: None Reported - Past Family History Mother Family Medical History: Coronary Artery Disease (CAD), Myocardial Infarction (MD) Additional Family Medical History / Comment(s): valve replacment(pig valve), p acemaker Father Family Medical History: Diabetes Mellitus, Myocardial Infarction (MD) Additional Family Medical History / Comment(s): pacemaker General Exam Limitations: no limitations General appearance: alert, in no apparent distress Head exam: Present: atraumatic, normocephalic, normal inspection Eye exam: Present: normal appearance, PERRL, EOMI. Absent: scleral icterus, conjunctival injection, periorbital swelling ENT exam: Present: normal exam, mucous membranes moist Neck exam: Present: normal inspection. Absent: tenderness, meningismus, lymphadenopathy Respiratory exam: Present: normal lung sounds bilaterally. Absent: respiratory distress, wheezes, rales, rhonchi, stridor Cardiovascular Exam: Present: regular rate, normal rhythm, normal heart sounds. Absent: systolic murmur, diastolic murmur, rubs, gallop, clicks GI/Abdominal exam: Present: soft, normal bowel sounds. Absent: distended, tenderness, guarding, rebound, rigid Extremities exam: Present: normal inspection, full ROM, normal capillary refill. Absent: tenderness, pedal edema, joint swelling, calf tenderness Back exam: Present: normal inspection Neurological exam: Present: alert, oriented X3, CN II-XII intact Psychiatric exam: Present: normal affect, normal mood Skin exam: Present: warm, dry, intact, normal color. Absent: rash Course Vital Signs 08/27/24 08/27/24 08/27/24 20:05 20:36 22:03 Temperature 98.3 F 100.5 F H Pulse Rate 87 79 Respiratory 18 15 Rate Blood Pressure 161/74 174/95 O2 Sat by Pulse 98 98 Oximetry 08/28/24 00:12 Temperature Pulse Rate 91 Respiratory 16 Rate Blood Pressure 165/92 O2 Sat by Pulse 95 Oximetry - Reevaluation(s) Reevaluation #1: 08/27/24 23:12 Medical records reviewed Reevaluation #2: 08/27/24 23:12 Patient symptoms mildly improved Reevaluation #3: 08/27/24 23:39 Patient informed of results and questions answered does not want further testing or imaging, no CT Reevaluation #4: Was pt. sent in by a medical professional or institution (, PA, RN POOL, urgent care, hospital, or detention...) When possible be specific @ -no Did you speak to anyone other than the patient for history (EMS, parent, family, police, friend...)? What history was obtained from this source @ -no Did you review nursing and triage notes (agree or disagree)? Why? @ -agree Are old charts reviewed (outside hosp., previous admission, EMS record, old EKG, old radiological studies, urgent care reports/EKG's, detention records)? Report findings @ -yes Differential Diagnosis (chest pain, altered mental status, abdominal pain women, abdominal pain men, vaginal bleeding, weakness, fever, dyspnea, syncope, headache, dizziness, GI bleed, back pain, seizure, CVA, palpatations, mental health, musculoskeletal)? @ -prior EKG interpreted by me (3pts min.). @ -yes X-rays interpreted by me (1pt min.). @ -yes negative for acute disease CT interpreted by me (1pt min.). @ -no U/S interpreted by me (1pt. min.). @ -no What testing was considered but not performed or refused? (CT, X-rays, U/S, labs)? Why? @ -none What meds were considered but not given or refused? Why? @ -none Did you discuss the management of the patient with other professionals (professionals i.e. , PA, RN POOL, lab, RT, psych nurse, social worker delinquency prevention, modeling analyst, teacher, grants officer, case supervisor)? Give summary @ -no Was smoking cessation discussed for >3mins.? @ -no Was critical care preformed (if so, how long)? @ -no Were there social determinants of health that impacted care today? How? (Homelessness, low income, unemployed, alcoholism, drug addiction, transpo rtation, low edu. Level, literacy, decrease access to med. care, halfway, rehab)? @ -none Was there de-escalation of care discussed even if they declined (Discuss DNR or withdrawal of care, Hospice)? DNR status @ -no What co-morbidities impacted this encounter? (DM, HTN, Smoking, COPD, CAD, Cancer, CVA, ARF, Chemo, Hep., AIDS, mental health diagnosis, sleep apnea, morbid obesity)? @ -none Was patient admitted / discharged? Hospital course, mention meds given and route, prescriptions, significant lab abnormalities, going to OR and other pertinent info. @ - 73 female with fever here in the ER, patient isfindings or cause for fever lab tests look well patient can be discharged home Discharge Undiagnosed new problem with uncertain prognosis? @ -no Drug Therapy requiring intensive monitoring for toxicity (Heparin, Nitro, Insulin, Cardizem)? @ -no Were any procedures done? @ -no Diagnosis/symptom? @ -Fever Acute, or Chronic, or Acute on Chronic? @ -Acute Uncomplicated (without systemic symptoms) or Complicated (systemic symptoms)? @ -Complicated Side effects of treatment? @ -no Exacerbation, Progression, or Severe Exacerbation? @ -exacerbation Poses a threat to life or bodily function? How? (Chest pain, USA, MD, pneumonia, PE, COPD, DKA, ARF, appy, cholecystitis, CVA, Diverticulitis, Homicidal, Suicidal, threat to staff... and all critical care pts) @ -yes Reevaluation #5: Differential Fever: Pneumonia, viral URI, endocarditis, myocarditis, pericarditis, otitis, sinusitis, peritonsillar Abscess, retropharyngeal Abscess, epiglottitis, peritonitis, appendicitis, Casie cystitis, diverticulitis, hepatitis, colitis, UTI, PID, TOA, pyelonephritis, prostatitis, epididymitis, meningitis, encephalitis, pulmonary embolism, CVA, thyroid storm, pancreatitis, adrenal crisis, cavernous sinus thrombosis, this is not meant to be an all-inclusive list. Medical Decision Making - Medical Decision Making 73 female with fever here in the ER, patient isfindings or cause for fever lab tests look well patient can be discharged home - Lab Data Result diagrams: 08/27/24 21:38 08/27/24 21:38 Lab Results 08/27/24 08/27/24 08/27/24 Range/Units 21:38 21:38 21:38 WBC 5.7 (3.8-10.6) k/uL RBC 3.86 (3.80-5.40) m/uL Hgb 12.2 (11.4-16.0) gm/dL Hct 37.6 (34.0-46.0) % MCV 97.5 (80.0-100.0) fL MCH 31.6 (25.0-35.0) pg MCHC 32.4 (31.0-37.0) g/dL RDW 14.0 (11.5-15.5) % Plt Count 140 L (150-450) k/uL MPV 7.9 Neutrophils % 74 % Lymphocytes % 12 % Monocytes % 7 % Eosinophils % 3 % Basophils % 0 % Neutrophils # 4.2 (1.3-7.7) k/uL Lymphocytes # 0.7 L (1.0-4.8) k/uL Monocytes # 0.4 (0-1.0) k/uL Eosinophils # 0.2 (0-0.7) k/uL Basophils # 0.0 (0-0.2) k/uL PT 9.5 L (10.0-12.5) sec INR 0.8 (<1.2) APTT 23.0 (22.0-30.0) sec Sodium 136 L (137-145) mmol/L Potassium 4.3 (3.5-5.1) mmol/L Chloride 108 H (98-107) mmol/L Carbon Dioxide 25 (22-30) mmol/L Anion Gap 3 mmol/L BUN 24 H (7-17) mg/dL Creatinine 0.71 (0.52-1.04) mg/dL Est GFR (CKD-EPI)AfAm >90 (>60 ml/min/1.73 sqM) Est GFR (CKD-EPI)NonAf 85 (>60 ml/min/1.73 sqM) Glucose 93 (74-99) mg/dL Plasma Lactic Acid Dinesh (0.7-2.0) mmol/L Calcium 9.4 (8.4-10.2) mg/dL Phosphorus 4.0 (2.5-4.5) mg/dL Magnesium 1.9 (1.6-2.3) mg/dL Total Bilirubin 0.7 (0.2-1.3) mg/dL AST 36 (14-36) U/L ALT 44 H (4-34) U/L Alkaline Phosphatase 174 H (38-126) U/L Troponin I (0.000-0.034) ng/mL Total Protein 6.0 L (6.3-8.2) g/dL Albumin 4.0 (3.5-5.0) g/dL Urine Color Urine Appearance (Clear) Urine pH (5.0-8.0) Ur Specific [place] (1.001-1.035) Urine Protein (Negative) Urine Glucose (UA) (Negative) Urine Ketones (Negative) Urine Blood (Negative) Urine Nitrite (Negative) Urine Bilirubin (Negative) Urine Urobilinogen (<2.0) mg/dL Ur Leukocyte Esterase (Negative) Urine RBC (0-5) /hpf Urine WBC (0-5) /hpf Ur Squamous Epith Cells (0-4) /hpf Urine Bacteria (None) /hpf Hyaline Casts (0-2) /lpf Urine Mucus (None) /hpf Influenza Type A (PCR) (Not Detectd) Influenza Type B (PCR) (Not Detectd) RSV (PCR) (Not Detectd) SARS-CoV-2 (PCR) (Not Detectd) 08/27/24 08/27/24 08/27/24 Range/Units 21:38 21:38 21:56 WBC (3.8-10.6) k/uL RBC (3.80-5.40) m/uL Hgb (11.4-16.0) gm/dL Hct (34.0-46.0) % MCV (80.0-100.0) fL MCH (25.0-35.0) pg MCHC (31.0-37.0) g/dL RDW (11.5-15.5) % Plt Count (150-450) k/uL MPV Neutrophils % % Lymphocytes % % Monocytes % % Eosinophils % % Basophils % % Neutrophils # (1.3-7.7) k/uL Lymphocytes # (1.0-4.8) k/uL Monocytes # (0-1.0) k/uL Eosinophils # (0-0.7) k/uL Basophils # (0-0.2) k/uL PT (10.0-12.5) sec INR (<1.2) APTT (22.0-30.0) sec Sodium (137-145) mmol/L Potassium (3.5-5.1) mmol/L Chloride (98-107) mmol/L Carbon Dioxide (22-30) mmol/L Anion Gap mmol/L BUN (7-17) mg/dL Creatinine (0.52-1.04) mg/dL Est GFR (CKD-EPI)AfAm (>60 ml/min/1.73 sqM) Est GFR (CKD-EPI)NonAf (>60 ml/min/1.73 sqM) Glucose (74-99) mg/dL Plasma Lactic Acid Dinesh 0.6 L (0.7-2.0) mmol/L Calcium (8.4-10.2) mg/dL Phosphorus (2.5-4.5) mg/dL Magnesium (1.6-2.3) mg/dL Total Bilirubin (0.2-1.3) mg/dL AST (14-36) U/L ALT (4-34) U/L Alkaline Phosphatase (38-126) U/L Troponin I <0.012 (0.000-0.034) ng/mL Total Protein (6.3-8.2) g/dL Albumin (3.5-5.0) g/dL Urine Color Urine Appearance (Clear) Urine pH (5.0-8.0) Ur Specific [place] (1.001-1.035) Urine Protein (Negative) Urine Glucose (UA) (Negative) Urine Ketones (Negative) Urine Blood (Negative) Urine Nitrite (Negative) Urine Bilirubin (Negative) Urine Urobilinogen (<2.0) mg/dL Ur Leukocyte Esterase (Negative) Urine RBC (0-5) /hpf Urine WBC (0-5) /hpf Ur Squamous Epith Cells (0-4) /hpf Urine Bacteria (None) /hpf Hyaline Casts (0-2) /lpf Urine Mucus (None) /hpf Influenza Type A (PCR) Not Detected (Not Detectd) Influenza Type B (PCR) Not Detected (Not Detectd) RSV (PCR) Not Detected (Not Detectd) SARS-CoV-2 (PCR) Not Detected (Not Detectd) 08/27/24 Range/Units 22:39 WBC (3.8-10.6) k/uL RBC (3.80-5.40) m/uL Hgb (11.4-16.0) gm/dL Hct (34.0-46.0) % MCV (80.0-100.0) fL MCH (25.0-35.0) pg MCHC (31.0-37.0) g/dL RDW (11.5-15.5) % Plt Count (150-450) k/uL MPV Neutrophils % % Lymphocytes % % Monocytes % % Eosinophils % % Basophils % % Neutrophils # (1.3-7.7) k/uL Lymphocytes # (1.0-4.8) k/uL Monocytes # (0-1.0) k/uL Eosinophils # (0-0.7) k/uL Basophils # (0-0.2) k/uL PT (10.0-12.5) sec INR (<1.2) APTT (22.0-30.0) sec Sodium (137-145) mmol/L Potassium (3.5-5.1) mmol/L Chloride (98-107) mmol/L Carbon Dioxide (22-30) mmol/L Anion Gap mmol/L BUN (7-17) mg/dL Creatinine (0.52-1.04) mg/dL Est GFR (CKD-EPI)AfAm (>60 ml/min/1.73 sqM) Est GFR (CKD-EPI)NonAf (>60 ml/min/1.73 sqM) Glucose (74-99) mg/dL Plasma Lactic Acid Dinesh (0.7-2.0) mmol/L Calcium (8.4-10.2) mg/dL Phosphorus (2.5-4.5) mg/dL Magnesium (1.6-2.3) mg/dL Total Bilirubin (0.2-1.3) mg/dL AST (14-36) U/L ALT (4-34) U/L Alkaline Phosphatase (38-126) U/L Troponin I (0.000-0.034) ng/mL Total Protein (6.3-8.2) g/dL Albumin (3.5-5.0) g/dL Urine Color Colorless Urine Appearance Clear (Clear) Urine pH 6.0 (5.0-8.0) Ur Specific [place] 1.013 (1.001-1.035) Urine Protein Negative (Negative) Urine Glucose (UA) Negative (Negative) Urine Ketones Negative (Negative) Urine Blood Negative (Negative) Urine Nitrite Negative (Negative) Urine Bilirubin Negative (Negative) Urine Urobilinogen <2.0 (<2.0) mg/dL Ur Leukocyte Esterase Small H (Negative) Urine RBC 3 (0-5) /hpf Urine WBC 6 H (0-5) /hpf Ur Squamous Epith Cells 5 H (0-4) /hpf Urine Bacteria Rare H (None) /hpf Hyaline Casts 5 H (0-2) /lpf Urine Mucus Moderate H (None) /hpf Influenza Type A (PCR) (Not Detectd) Influenza Type B (PCR) (Not Detectd) RSV (PCR) (Not Detectd) SARS-CoV-2 (PCR) (Not Detectd) - EKG Data -: EKG Interpreted by Me (EKG is sinus 80 MS 120 QRS 87 QTc 401) - Radiology Data Radiology results: report reviewed (Chest x-ray is negative for acute disease), image reviewed Disposition Clinical Impression: Fever Disposition: HOME SELF-CARE Condition: Good Instructions (If sedation given, give patient instructions): Fever in Adults (ED) Is patient prescribed a controlled substance at d/c from ED?: No Referrals: Tracey Gonzalez DO [Primary Care Provider] - 1-2 days Time of Disposition: 23:30
[2024-08-27] MEDS: SODIUM CHLORIDE 0.9% 1,000 ML IV STA (21:51)
[2024-08-27] MEDS: ACETAMINOPHEN TAB 500 MG TAB PO STA (21:52)
[2024-08-27 21:54] LABS: Basophils % (A) 0 %; Eosinophils # (A) 0.2 k/uL (0-0.7); Eosinophils % (A) 3 %; HCT 37.6 % (34.0-46.0); HGB 12.2 gm/dL (11.4-16.0); Lymphocytes # (A) 0.7 k/uL (1.0-4.8); Lymphocytes % (A) 12 %; MCH 31.6 pg (25.0-35.0); MCHC 32.4 g/dL (31.0-37.0); MCV 97.5 fL (80.0-100.0); Mean Platelet Volume 7.9; Monocytes # (A) 0.4 k/uL (0-1.0); Monocytes % (A) 7 %; Neutrophils # (A) 4.2 k/uL (1.3-7.7); Neutrophils % (A) 74 %; Platelet Count 140 k/uL (150-450); RBC 3.86 m/uL (3.80-5.40); WBC 5.7 k/uL (3.8-10.6)
--- NOTE | 2024-08-27 21:54 | XR ---
EXAMINATION TYPE: XR chest 2V DATE OF EXAM: 08/27/2024 9:48 PM CLINICAL INDICATION:Female, 73 years old with history of Weakness; [facility] COMPARISON: 04/09/2024 TECHNIQUE: XR chest 2V. Frontal and lateral views of the chest.. FINDINGS: Right chest MediPort unchanged with catheter tip over the mid SVC. Cardiac silhouette is stable. Heart is not enlarged. Lungs appear hyperinflated with mild interstitial coarsening suggestive of COPD changes, as before. No focal consolidation, sizable pleural effusion, or visible pneumothorax. No acute bony or soft tissue abnormality indicated. Clips in the right upper quadrant likely from cholecystectomy. IMPRESSION: Changes of COPD/emphysema suggested, without evidence of acute superimposed airspace disease. [facility], , 08/27/2024 9:51 PM
[2024-08-27 21:56] LABS: ALT 44 U/L (4-34); AST 36 U/L (14-36); African American GFR (CKD) >90 (>60 ml/min/1.73 sqM); Alkaline Phosphatase 174 U/L (38-126); Anion Gap 3 mmol/L; Blood Urea Nitrogen 24 mg/dL (7-17); Calcium 9.4 mg/dL (8.4-10.2); Carbon Dioxide 25 mmol/L (22-30); Chloride 108 mmol/L (98-107); Glucose 93 mg/dL (74-99); Magnesium 1.9 mg/dL (1.6-2.3); Non-African American GFR(CKD) 85 (>60 ml/min/1.73 sqM); Potassium 4.3 mmol/L (3.5-5.1); Sodium 136 mmol/L (137-145); Total Bilirubin 0.7 mg/dL (0.2-1.3)
[2024-08-27] MEDS: ONDANSETRON 4 MG/2 ML VIAL IVP STA (21:56)
[2024-08-27] MEDS: KETOROLAC 15 MG/ML 1 ML VIAL IVP STA (21:56)
[2024-08-27 22:00] LABS: INR 0.8 (<1.2); Prothrombin Time 9.5 sec (10.0-12.5)
[2024-08-27 22:52] LABS: Appearance,Urine Clear (Clear); Bacteria,Urine Rare /hpf; Bilirubin,Urine Negative (Negative); Blood,Urine Negative (Negative); Color,Urine Colorless; Glucose,Urine (UA) Negative (Negative); Hyaline Casts,Urine 5 /lpf (0-2); Ketones,Urine Negative (Negative); Leukocyte Esterase,Urine Small (Negative); Mucus,Urine Moderate /hpf; Nitrite,Urine Negative (Negative); Protein,Urine Negative (Negative); RBC,Urine 3 /hpf (0-5); Specific Gravity,Urine 1.013 (1.001-1.035); Squamous Epithelial Cell,Urine 5 /hpf (0-4); Urobilinogen,Urine <2.0 mg/dL (<2.0); WBC,Urine 6 /hpf (0-5)
[2024-08-28] MEDS: methylPREDNISolone SOD SUCCI 125 MG/2 ML VIAL IV STA (00:11)
[2024-08-28] MEDS: diphenhydrAMINE 50 MG/ML 1 ML VIAL IVP STA (00:11)
[2024-08-28] MEDS: FAMOTIDINE 20 MG/2 ML VIAL IV STA (00:11)
[2024-08-28 00:13] VITALS: BP 165/92; PULSE 91; RESP 16
== END 2024-08-28 00:13 | disposition home or self-care (01) ==
LOC: EC 19:58
CPT/HCPCS: 36415; 71046; 80053; 81001; 83605; 83735; 84100; 84484; 85025; 85610; 85730; 87636; 93005; 96360; 99284

== ENCOUNTER 2024-09-26 12:39 | Emergency (ER) | payer MEDICARE, OTHER ==
--- NOTE | 2024-09-26 13:18 | ED ---
URI HPI - General Stated Complaint: cough Time Seen by Provider: 09/26/24 12:56 Source: patient Mode of arrival: ambulatory Limitations: no limitations - History of Present Illness Initial Comments: This is a 74-year-old female with history of small cell lung cancer presenting with cough and headache. Patient endorses anxiety and concern for COVID due to receiving of care chemotherapy for her lung cancer diagnosis. Endorses use of Mucinex and Tylenol with minimal relief. Endorses use of doxycycline from a previously diagnosed tooth infection that was started yesterday. Patient denies fever, chills, fatigue, chest pain, dyspnea, abdominal pain, N/V/D, hemoptysis. MD Complaint: cough - Related Data Home Medications Medication Instructions Recorded Confirmed clonazePAM [KlonoPIN] 0.5 mg PO BID@0900,2100 04/06/19 04/09/24 clonazePAM [KlonoPIN] 0.5 tab PO DAILY@1500 04/06/19 04/09/24 DULoxetine HCL [Cymbalta] 30 mg PO DAILY 04/09/24 04/09/24 Ondansetron Odt [Zofran Odt] 8 mg PO Q8HR PRN 04/09/24 04/09/24 Allergies Allergy/AdvReac Type Severity Reaction Status Date / Time allopurinol Allergy Anaphylaxis Verified 09/26/24 13:42 ampicillin Allergy Rash/Hives Verified 09/26/24 13:42 avocado Allergy Nausea & Verified 09/26/24 13:42 Vomiting doxycycline Allergy Rash/Hives Verified 09/26/24 13:42 Iodinated Contrast Media Allergy Swelling Verified 09/26/24 13:42 [Iodinated Contrast- Oral and IV Dye] metronidazole [From Flagyl] Allergy Rash/Hives Verified 09/26/24 13:42 Penicillins Allergy Rash/Hives Verified 09/26/24 13:42 rituximab [From Rituxan] Allergy Diarrhea Verified 09/26/24 13:42 Sulfa (Sulfonamide Allergy Unknown Verified 09/26/24 13:42 Antibiotics) Review of Systems ROS Statement: Those systems with pertinent positive or pertinent negative responses have been documented in the HPI. ROS Other: All systems not noted in ROS Statement are negative. Past Medical History Past Medical History: Cancer, COPD, GERD/Reflux, Thyroid Disorder Additional Past Medical History / Comment(s): CURRENT: ABD PAIN, DIARRHEA. LIVER DAMAGE (PER PATIENT SHE BELIEVES THAT IT WAS RESULT OF ALLUPURINOL, WAS HOSPITILIZED). Non hodgkins lymphoma IN 2012. Hiatal hernia. Went into deysi ssion then had reoccurance few months ago-completed 30 tx (first round). Other past hx includes: mono in high school, hepatitis B. 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 History of Any Multi-Drug Resistant Organisms: None Reported Past Surgical History: Adenoidectomy, Cholecystectomy, Tonsillectomy Additional Past Surgical History / Comment(s): rt cervical bx, multiple lymph nodes removed, colonoscopy, rt breast biopsy -neg Past Anesthesia/Blood Transfusion Reactions: No Reported Reaction Past Psychological History: Anxiety, Depression Smoking Status: Former smoker Past Alcohol Use History: None Reported Past Drug Use History: None Reported - Past Family History Mother Family Medical History: Coronary Artery Disease (CAD), Myocardial Infarction ([place]) Additional Family Medical History / Comment(s): valve replacment(pig valve), pacemaker Father Family Medical History: Diabetes Mellitus, Myocardial Infarction ([place]) Additional Family Medical History / Comment(s): pacemaker General Exam - General Exam Comments Initial Comments: Visual Physical Exam Vital signs reviewed General: Well-appearing, nontoxic, no acute distress. Head: Normocephalic, atraumatic Eyes: PERRLA, EOMI ENT: Airway patent Chest: Nonlabored breathing Skin: No visual rash, normal skin tone Neuro: Alert and oriented 3 Musculoskeletal: No gross abnormalities General appearance: alert, in no apparent distress Head exam: Present: atraumatic, normocephalic, normal inspection Eye exam: Present: normal appearance, PERRL, EOMI. Absent: scleral icterus, conjunctival injection, periorbital swelling ENT exam: Present: normal exam, mucous membranes moist Neck exam: Present: normal inspection. Absent: tenderness, meningismus, lymphadenopathy Respiratory exam: Present: normal lung sounds bilaterally. Absent: respiratory distress, wheezes, rales, rhonchi, stridor Cardiovascular Exam: Present: regular rate, normal rhythm, normal heart sounds. Absent: systolic murmur, diastolic murmur, rubs, gallop, clicks GI/Abdominal exam: Present: soft, normal bowel sounds. Absent: distended, tenderness, guarding, rebound, rigid Extremities exam: Present: normal inspection, full ROM, normal capillary refill. Absent: tenderness, pedal edema, joint swelling, calf tenderness Back exam: Present: normal inspection Neurological exam: Present: alert, oriented X3, CN II-XII intact Psychiatric exam: Present: normal affect, normal mood Skin exam: Present: warm, dry, intact, normal color. Absent: rash Course Vital Signs 09/26/24 13:41 Temperature 98.7 F Pulse Rate 90 Respiratory 20 Rate Blood Pressure 138/70 O2 Sat by Pulse 99 Oximetry Medical Decision Making - Medical Decision Making Was pt. sent in by a medical professional or institution (, PA, REFINERY OPERATOR HELPER, urgent care, hospital, or [facility]...) When possible be specific @ -No Did you speak to anyone other than the patient for history (EMS, parent, family, police, friend...)? What history was obtained from this source @ -No Did you review nursing and triage notes (agree or disagree)? Why? @ -I reviewed and agree with nursing and triage notes Were old charts reviewed (outside hosp., previous admission, EMS record, old EKG, old radiological studies, urgent care reports/EKG's, [facility] records)? Report findings @ -No old charts were reviewed Differential Diagnosis (chest pain, altered mental status, abdominal pain women, abdominal pain men, vaginal bleeding, weakness, fever, dyspnea, syncope, headache, dizziness, GI bleed, back pain, seizure, CVA, palpatations, mental health, musculoskeletal)? @ -Differential Dyspnea: Coronary syndrome, arrhythmia, tamponade, asthma, COPD, pulmonary embolism, pneumonia, pneumothorax, pulmonary effusion, anaphylaxis, diabetic ketoacidosis, flailed chest, pulmonary contusion, diaphragmatic rupture, anemia, neuromuscular, this is not meant to be an all-inclusive list. EKG interpreted by me (3pts min.). @ -Not done X-rays interpreted by me (1pt min.). @ -Chest x-ray revealed no infiltrates, pulmonary edema, pneumothorax CT interpreted by me (1pt min.). @ -None done U/S interpreted by me (1pt. min.). @ -None done What testing was considered but not performed or refused? (CT, X-rays, U/S, labs)? Why? @ -None What meds were considered but not given or refused? Why? @ -None Did you discuss the management of the patient with other professionals (professionals i.e. , PA, REFINERY OPERATOR HELPER, lab, RT, psych nurse, social service assistant, labelling machine operator, teacher, operations officer afloat, caser)? Give summary @ -No Was smoking cessation discussed for >3mins.? @ -No Was critical care preformed (if so, how long)? @ -No Were there social determinants of health that impacted care today? How? (Homelessness, low income, unemployed, alcoholism, drug addiction, transportation, low edu. Level, literacy, decrease access to med. care, snf, rehab)? @ -No Was there de-escalation of care discussed even if they declined (Discuss DNR or withdrawal of care, Hospice)? DNR status @ -No What co-morbidities impacted this encounter? (DM, HTN, Smoking, COPD, CAD, Cancer, CVA, ARF, Chemo, Hep., AIDS, mental health diagnosis, sleep apnea, morbid obesity)? @ -Cancer Was patient admitted / discharged? Hospital course, mention meds given and route, prescriptions, significant lab abnormalities, going to OR and other pertinent info. @ -Discharge. Chest x-ray was unremarkable. Cepheid test was negative. Lab work revealed white blood cells at 4.0 but otherwise largely unremarkable as well. Advised patient continue previous medication use and follow-up with primary care in next 24 to 48 hours. Advised return to ER if experiencing worsening cough, dyspnea, fever, hemoptysis. Undiagnosed new problem with uncertain prognosis? @ -No Drug Therapy requiring intensive monitoring for toxicity (Heparin, Nitro, Insulin, Cardizem)? @ -No Were any procedures done? @ -No Diagnosis/symptom? @ -Acute bronchitis Acute, or Chronic, or Acute on Chronic? @ -Acute Uncomplicated (without systemic symptoms) or Complicated (systemic symptoms)? @ -Uncomplicated Side effects of treatment? @ -No Exacerbation, Progression, or Severe Exacerbation? @ -No Poses a threat to life or bodily function? How? (Chest pain, [place], [place], pneumonia, PE, COPD, DKA, ARF, appy, cholecystitis, CVA, Diverticulitis, Homicidal, Suicidal, threat to staff... and all critical care pts) @ -No - Lab Data Result diagrams: 09/26/24 16:36 09/26/24 16:36 Lab Results 09/26/24 09/26/2424 Range/Units 13:44 16:36 16:36 WBC 4.0 (3.8-10.6) k/uL RBC 4.45 (3.80-5.40) m/uL Hgb 13.6 (11.4-16.0) gm/dL Hct 42.7 (34.0-46.0) % MCV 95.9 (80.0-100.0) fL MCH 30.5 (25.0-35.0) pg MCHC 31.8 (31.0-37.0) g/dL RDW 14.0 (11.5-15.5) % Plt Count 164 (150-450) k/uL MPV 7.9 Neutrophils % 73 % Lymphocytes % 12 % Monocytes % 7 % Eosinophils % 5 % Basophils % 0 % Neutrophils # 2.9 (1.3-7.7) k/uL Lymphocytes # 0.5 L (1.0-4.8) k/uL Monocytes # 0.3 (0-1.0) k/uL Eosinophils # 0.2 (0-0.7) k/uL Basophils # 0.0 (0-0.2) k/uL Sodium 136 L (137-145) mmol/L Potassium 4.1 (3.5-5.1) mmol/L Chloride 101 (98-107) mmol/L Carbon Dioxide 28 (22-30) mmol/L Anion Gap 7 mmol/L BUN 14 (7-17) mg/dL Creatinine 0.79 (0.52-1.04) mg/dL Est GFR (CKD-EPI)AfAm 86 (>60 ml/min/1.73 sqM) Est GFR (CKD-EPI)NonAf 75 (>60 ml/min/1.73 sqM) Glucose 134 H (74-99) mg/dL Calcium 9.4 (8.4-10.2) mg/dL Total Bilirubin 0.3 (0.2-1.3) mg/dL AST 31 (14-36) U/L ALT 31 (4-34) U/L Alkaline Phosphatase 174 H (38-126) U/L Total Protein 6.8 (6.3-8.2) g/dL Albumin 4.3 (3.5-5.0) g/dL Influenza Type A (PCR) Not Detected (Not Detectd) Influenza Type B (PCR) Not Detected (Not Detectd) RSV (PCR) Not Detected (Not Detectd) SARS-CoV-2 (PCR) Not Detected (Not Detectd) Disposition Clinical Impression: Bronchitis Disposition: HOME SELF-CARE Condition: Good Instructions (If sedation given, give patient instructions): Acute Bronchitis (ED) Additional Instructions: Continue use of previously utilized medication. Follow-up with primary care and next 24 to 48 hours. Is patient prescribed a controlled substance at d/c from ED?: No Referrals: Tracey Gonzalez DO [Primary Care Provider] - 1-2 days Time of Disposition: 18:02
[2024-09-26 13:42] VITALS: BP 138/70; PULSE 90; RESP 20; TEMP 98.7
--- NOTE | 2024-09-26 14:16 | XR ---
EXAMINATION TYPE: XR chest 2V DATE OF EXAM: 09/26/2024 2:08 PM COMPARISON: Chest radiographs from CLINICAL INDICATION: Female, 74 years old with history of Cough, history of small cell lung cancer; P HH TECHNIQUE: XR chest 2V Frontal and lateral views of the chest. FINDINGS: Heart size within normal limits. No acute focal consolidation. No pleural effusion. Right chest wall port catheter distal catheter tip terminating in the mid/distal SVC. Subtle nodularity in the left upper lobe. Lungs are provided bilaterally with coarsening of interstit ial markings. IMPRESSION: No acute cardiopulmonary disease/process. [facility], , 09/26/2024 2:14 PM
[2024-09-26 17:05] LABS: Basophils % (A) 0 %; Eosinophils # (A) 0.2 k/uL (0-0.7); Eosinophils % (A) 5 %; HCT 42.7 % (34.0-46.0); HGB 13.6 gm/dL (11.4-16.0); Lymphocytes # (A) 0.5 k/uL (1.0-4.8); Lymphocytes % (A) 12 %; MCH 30.5 pg (25.0-35.0); MCHC 31.8 g/dL (31.0-37.0); MCV 95.9 fL (80.0-100.0); Mean Platelet Volume 7.9; Monocytes # (A) 0.3 k/uL (0-1.0); Monocytes % (A) 7 %; Neutrophils # (A) 2.9 k/uL (1.3-7.7); Neutrophils % (A) 73 %; Platelet Count 164 k/uL (150-450); RBC 4.45 m/uL (3.80-5.40)
[2024-09-26 17:14] LABS: ALT 31 U/L (4-34); AST 31 U/L (14-36); African American GFR (CKD) 86 (>60 ml/min/1.73 sqM); Albumin 4.3 g/dL (3.5-5.0); Alkaline Phosphatase 174 U/L (38-126); Anion Gap 7 mmol/L; Blood Urea Nitrogen 14 mg/dL (7-17); Calcium 9.4 mg/dL (8.4-10.2); Carbon Dioxide 28 mmol/L (22-30); Chloride 101 mmol/L (98-107); Glucose 134 mg/dL (74-99); Non-African American GFR(CKD) 75 (>60 ml/min/1.73 sqM); Potassium 4.1 mmol/L (3.5-5.1); Sodium 136 mmol/L (137-145); Total Bilirubin 0.3 mg/dL (0.2-1.3); Total Protein 6.8 g/dL (6.3-8.2)
== END 2024-09-26 18:19 | disposition home or self-care (01) ==
LOC: EC 12:39
DX: J20.9 Acute bronchitis, unspecified (principal); C34.90 Malignant neoplasm of unspecified part of unspecified bronchus or lung; Z87.891 Personal history of nicotine dependence; Z88.8 Allergy status to other drugs, medicaments and biological substances; Z88.1 Allergy status to other antibiotic agents; Z88.0 Allergy status to penicillin; Z91.018 Allergy to other foods; Z88.2 Allergy status to sulfonamides; Z91.041 Radiographic dye allergy status
CPT/HCPCS: 36415; 71046; 80053; 85025; 87636; 99283